=== PATIENT | male | born 1955 | race Caucasian/White ===

== ENCOUNTER 2022-08-13 12:46 | Observation (INO) ==
[2022-08-13 13:46] LABS: Basophils # (auto) 0.02 K/uL (0-0.2); Basophils % (auto) 0.2 %; Hematocrit (blood only) 46.4 % (42.0-52.0); Hemoglobin 15.7 g/dl (14.0-18.0); Immature Granulocytes # (auto) 0.04 K/uL (0.01-0.20); Immature Granulocytes % (auto) 0.4 %; Lymphocytes # (auto) 0.62 K/uL (1.2-3.4); Lymphocytes % (auto) 5.6 %; Mean Corpuscular Hemoglobin 30.8 pg (25.0-34.0); Mean Corpuscular Hgb Conc 33.8 g/dL (32.0-36.0); Mean Platelet Volume 9.8 fL (9.4-12.4); Monocytes # (auto) 0.81 K/uL (0.11-0.59); Monocytes % (auto) 7.3 %; Neutrophils # (auto) 9.59 K/uL (1.40-6.50); Neutrophils % (auto) 86.5 %; Platelet Count 243 K/uL (130-400); RDW Coefficient of Variation 12.6 % (11.5-14.5); White Blood Count 11.08 K/ul (4.8-10.8)
--- NOTE | 2022-08-13 14:03 | Emergency Department Note ---
ED Provider Note History of Present Illness Chief Complaint: Swelling/Edema to Extremity Stated Complaint: HAND SWELLING, POSSIBLE INFECTION - MD REFERRED Time Seen by Provider: 08/13/22 13:03 Source: patient Mode of arrival: ambulatory Limitations: no limitations Patient is a 67-year-old male who presents to the emergency department for evaluation of swelling and pain of his left thumb. Patient reports that 3 to 4 days ago, he got a piece of plastic stuck in the skin of his left thumb. He was able to remove this and believes that he got all of it out. He states that yesterday, he noticed some increased pain and swelling in the thumb. He is having trouble bending the thumb and making a fist. He denies any fevers/chills. Home Medications Medication Instructions Recorded Confirmed Type ibuprofen 200 mg tablet 200 - 400 mg PO DIRECTED PRN 08/13/22 08/13/22 History Pain Allergies Allergy/AdvReac Type Severity Reaction Status Date / Time No Known Allergies Allergy Unknown Verified 08/13/22 16:10 Past Med/Surg History Social History Smoking Status: Never smoker Preferred Language: Mosotho Feels Safe at Home: Yes Physical Exam Vital Signs Vital Signs - 24 hr 08/13/22 12:49 08/13/22 16:11 08/13/22 19:59 Temperature 36.5 C Temperature Source Temporal Artery Scan Pulse Rate 71 Pulse Rate [Apical] 72 75 Respiratory Rate 18 18 16 Respiratory Effort / Characteristics Non-Labored Spontaneous Non-Labored Respiratory Depth Normal Normal Respiratory Pattern Regular Blood Pressure 166/82 H Blood Pressure [Left Arm] 134/73 145/75 H Blood Pressure Mean 110 Blood Pressure Mean [Left Arm] 93 98 Blood Pressure Position Sitting Pulse Oximetry 99 96 98 Oxygen Delivery Method Room Air Room Air Room Air Sepsis Recent Fever Within 48 Hours No Sepsis New/Unexplained Change in Mental Status N/A Sepsis Action Taken by Nursing No Action Required VITALS: Vitals are noted on the nurse's note and reviewed by myself. GENERAL: This is a 67-year-old male, in no acute distress, well-developed well- nourished. SKIN: A small puncture wound to the finger pad of the left thumb. There is diffuse erythema and edema over the left thumb. MUSCULOSKELETAL: Patient is unable to fully flex the left thumb. There is some mild generalized tenderness to palpation over the flexor aspect of the left thumb. No red streaking up the arm. NEURO: Patient was alert and oriented to person place and time. Distal sensation intact. Course Course Splint placement: Splint: Ortho-Glass thumb spica Indication: Concern for tenosynovitis of the left thumb Ortho-Glass splint was applied by the ED blending technician under my supervision. Neurovascular status reassessed by myself status post splint placement and was intact. Administered Medications Discontinued Medications Ceftriaxone Sodium 1,000 mg/ (Dextrose) 50 mls @ 100 mls/hr IV NOW STA Stop: 08/13/22 15:50 Last Infusion: 08/13/22 16:42 Dose: 0 mls/hr Documented By: Admin: 08/13/22 16:06 Dose: 100 mls/hr Documented By: ANTOINETTE Vancomycin HCl 1,250 mg/ (Sodium Chloride) 525 mls @ 200 mls/hr IV NOW ONE Stop: 08/13/22 18:47 Last Admin: 08/13/22 16:52 Dose: 200 mls/hr Documented By: ANTOINETTE Ketorolac Tromethamine (Ketorolac Tromethamine 15 Mg/Ml Vial) 15 mg IV NOW STA Stop: 08/13/22 14:37 Last Admin: 08/13/22 14:47 Dose: 15 mg Documented By: ANTOINETTE Morphine Sulfate (Morphine Sulfate 2 Mg/Ml Carp) 2 mg IV NOW STA Stop: 08/13/22 16:11 Last Admin: 08/13/22 16:49 Dose: 2 mg Documented By: ANTOINETTE Morphine Sulfate (Morphine Sulfate 4 Mg/Ml 1 Ml Carp\Vial) 4 mg IV NOW STA Stop: 08/13/22 19:12 Last Admin: 08/13/22 19:14 Dose: 4 mg Documented By: ANTOINETTE Medical Decision Making Differential Diagnosis Differential diagnosis includes paronychia, felon, flexor tenosynovitis, cellulitis, abscess, among others. Home Medications was personally reviewed by me Laboratory Data Attestation: I reviewed the patient's lab results. 08/13/22 13:35 08/13/22 13:35 Lab Results 08/13/22 08/13/22 08/13/22 Range/Units 13:35 13:35 16:30 WBC 11.08 H (4.8-10.8) K/ul RBC 5.10 (4.70-6.10) M/uL Hgb 15.7 (14.0-18.0) g/dl Hct 46.4 (42.0-52.0) % MCV 91.0 (80.0-100.0) fL MCH 30.8 (25.0-34.0) pg MCHC 33.8 (32.0-36.0) g/dL RDW Std Deviation 42.0 (36.4-46.3) fL RDW Coeff of Good 12.6 (11.5-14.5) % Plt Count 243 (130-400) K/uL MPV 9.8 (9.4-12.4) fL Immature Gran % (Auto) 0.4 % Neut % (Auto) 86.5 % Lymph % (Auto) 5.6 % [place] % (Auto) 7.3 % Eos % (Auto) 0.0 % Baso % (Auto) 0.2 % Neut # (Auto) 9.59 H (1.40-6.50) K/uL Lymph # (Auto) 0.62 L (1.2-3.4) K/uL [place] # (Auto) 0.81 H (0.11-0.59) K/uL Eos # (Auto) 0.00 (0-0.50) K/uL Baso # (Auto) 0.02 (0-0.2) K/uL Immature Gran # (Auto) 0.04 (0.01-0.20) K/uL Sodium 138 (136-145) mmol/L Potassium 4.4 (3.5-5.1) mmol/L Chloride 102 (98-107) mmol/L Carbon Dioxide 29 (21-32) mmol/L Anion Gap 7 (3-11) BUN 23 (6-23) mg/dl Creatinine 0.76 (0.6-1.4) mg/dl Est Cr Clr Drug Dosing 82.4 ml/min Est GFR ( Amer) 110.2 ml/min Est GFR (Non-Af Amer) 95.1 ml/min BUN/Creatinine Ratio 30.3 H (10-20) Glucose 104 H (70-99(Fasting)) mg/dl Calcium 9.1 (8.6-10.3) mg/dl Total Bilirubin 1.0 (0.2-1.0) mg/dl AST 25 (13-39) U/L ALT 19 (7-52) U/L Alkaline Phosphatase 51 (34-104) U/L Total Protein 7.1 (6.0-8.3) gm/dl Albumin 4.2 (3.4-5.0) gm/dl Globulin 2.9 (2.5-4.0) gm/dl Albumin/Globulin Ratio 1.4 (0.9-2) SARS-CoV-2, RNA, NAAT NEGATIVE (NEGATIVE) Imaging Data Attestation: I personally reviewed and interpreted this imaging study as follows: Radiologist's Impression: Finger X-Ray 08/13/22 13:26 LEFT THUMB 3 VIEWS HISTORY: left thumb swelling, pain COMPARISON: None. FINDINGS: There is no fracture or dislocation. Diffuse soft tissue swelling within the left thumb. No soft tissue gas. No destructive changes to suggest an osteomyelitis. No radiopaque foreign bodies. IMPRESSION: Soft tissue swelling within the left thumb. No radiopaque foreign bodies. ACT 112: Negative or not required by law. Electronically signed by: Gaurav Peoples M.D. 08/13/2022 2:41 PM MDM Narrative This patient is a 67-year-old male who presents to the emergency department for evaluation of pain and swelling in his left thumb. Patient had a puncture wound to the area a few days ago and has had increasing swelling and pain over the past few days. On exam he has fusiform swelling of the finger with difficulty flexing the finger. He has some pain extending into the hand and up the forearm. Symptoms actually worsened while he was in the emergency department. I am concerned about the possibility of a flexor tenosynovitis. I consulted orthopedics who did evaluate the patient and recommended admission to medicine. Patient was given Rocephin and [facility]com[facility] was [facility] in an Ortho-Glass thumb spica splint at the recommendation of orthopedics. Impression Cellulitis of thumb, left Discharge Plan Visit Data Chief Complaint: Swelling/Edema to Extremity Stated Complaint: HAND SWELLING, POSSIBLE INFECTION - MD REFERRED ED Provider: [facility] ED Midlevel Provider: Radha Saldana Discharge Problem: Cellulitis of thumb, left Patient Disposition: Admitted As Inpatient Discharge Instructions Interventions: ED Discharge Assessment Last Done: 08/13/22 20:06 Forms Stand Alone Forms: My [facility] Prescriptions Prescriptions: No Action ibuprofen 200 mg Tablet 200 - 400 mg PO DIRECTED PRN (Reason: Pain) Referrals Referrals: Omaira Bartlett [Primary Care Provider] -
[2022-08-13 14:05] LABS: Albumin Globulin Ratio 1.4 (0.9-2); Albumin Level 4.2 gm/dl (3.4-5.0); BUN Creatinine Ratio 30.3 (10-20); Calcium 9.1 mg/dl (8.6-10.3); Creatinine Clr Calc Pharmacy 82.4 ml/min; Est GFR (African American) 110.2 ml/min; Est GFR (Non-African American) 95.1 ml/min; Globulin 2.9 gm/dl (2.5-4.0); Potassium 4.4 mmol/L (3.5-5.1); Total Protein 7.1 gm/dl (6.0-8.3)
[2022-08-13] MEDS ORDERED: KETOROLAC TROMETHAMINE 15 MG/ML VIAL IV STA (14:36)
--- NOTE | 2022-08-13 14:42 | XRay Report ---
LEFT THUMB 3 VIEWS HISTORY: left thumb swelling, pain COMPARISON: None. FINDINGS: There is no fracture or dislocation. Diffuse soft tissue swelling within the left thumb. No soft tissue gas. No destructive changes to suggest an osteomyelitis. No radiopaque foreign bodies. IMPRESSION: Soft tissue swelling within the left thumb. No radiopaque foreign bodies. ACT 112: Negative or not required by law. Electronically signed by: Gaurav Peoples M.D. 08/13/2022 2:41 PM
[2022-08-13] MEDS ORDERED: cefTRIAXone SODIUM 1,000 MG in DEXTROSE 5% AD-VAN 50 ML IV STA (15:21)
[2022-08-13] MEDS ORDERED: VANCOMYCIN CONSULT ACTIVE PRN (16:10)
[2022-08-13] MEDS ORDERED: MoRPHine SULFATE 2 MG/ML CARP IV STA (16:10)
[2022-08-13] MEDS ORDERED: VANCOMYCIN HCL 1,250 MG in SODIUM CHLORIDE 0.9% 500 ML IV ONE (16:10)
--- NOTE | 2022-08-13 18:24 | History & Physical Report ---
Date of Service August 13, 2022 Assessment & Plan (1) Cellulitis of thumb, left: Plan: Vancomycin + ceftriaxone due to concern for flexor tenosynovitis. Follow up blood cultures Consult orthopedics Plan VTE Prophylaxis - low risk Diet - regular, NPO after midnight Disposition - admit to med/surg Admission and Anticipated Discharge Date Admission Date: August 13, 2022 History of Present Illness Chief Complaint: Left thumb swelling, pain, erythema Primary Care Provider: Omaira Bartlett Eric Jones is a 67 year old male who presents to the ER with left thumb swelling, pain and redness. Initial injury after pice of plastic stuck in his left thumb 3 days ago. The following day he thought something was stuck in it still and tried to dig it out with a needle. Yesterday and much worse today s welling erythema and numbness which is already starting to improve with antibiotics and pain medications given in the ER. He feels the swelling down to his mid forearm. Associated fever and chills. Patient is otherwise healthy. Can run a mile without any issues. No prior history of heart attacks or strokes. On no routine prescription medications. Allergies Allergy/AdvReac Type Severity Reaction Status Date / Time No Known Allergies Allergy Unknown Verified 08/13/22 16:10 Home Medications Medication Instructions Recorded Confirmed Type ibuprofen 200 mg tablet 200 - 400 mg PO DIRECTED PRN 08/13/22 08/13/22 History Pain Past Med/Surg History Social History Smoking Status: Never smoker Hx Alcohol Use: Yes Alcohol type: wine and hard liquor Hx Substance Use: No Preferred Language: Sinhala Life Assurance Representative Required: No Beliefs That Will Affect Care: None Current Living Situation: Spouse Feels Safe at Home: Yes Safety Concerns: Feels Safe At This Time Assistive Devices: None Review of Systems Review of Systems: All systems reviewed & are unremarkable except as noted in HPI & below Physical Exam Constitutional: WD/WN, vitals as above Respiratory: normal respiratory effort, lungs clear to auscultation Cardiovascular: RRR, no murmur, no edema Gastrointestinal (Abdomen): normal bowel sounds, soft, nontender, no hepatosplenomegaly Skin: erythema and swelling from left thumb to wrist. swelling extends with associated pain on palpation to mid forearm. pain on flexion of his thumb - limited by swelling. Results & Data Results & Data Vital Signs (Past 12 Hours) Vital Signs Temp Pulse Pulse Resp BP BP Pulse Ox 08/13/22 16:11 72 18 134/73 96 08/13/22 12:49 36.5 C 71 18 166/82 H 99 O2 Del Method 08/13/22 16:11 Room Air 08/13/22 12:49 Room Air Laboratory Results Abnormal lab results 08/13/22 08/13/22 Range/Units 13:35 13:35 WBC 11.08 H (4.8-10.8) K/ul Neut # (Auto) 9.59 H (1.40-6.50) K/uL Lymph # (Auto) 0.62 L (1.2-3.4) K/uL [place] # (Auto) 0.81 H (0.11-0.59) K/uL BUN/Creatinine Ratio 30.3 H (10-20) Glucose 104 H (70-99(Fasting)) mg/dl C-Reactive Protein 2.59 H (0-0.5) mg/dl Diagnostic Findings LEFT THUMB 3 VIEWS HISTORY: left thumb swelling, pain COMPARISON: None. FINDINGS: There is no fracture or dislocation. Diffuse soft tissue swelling within the left thumb. No soft tissue gas. No destructive changes to suggest an osteomyelitis. No radiopaque foreign bodies. IMPRESSION: Soft tissue swelling within the left thumb. No radiopaque foreign bodies. Medications Administered ER Medications Given: Toradol 15mg IV Ceftriaxone 1000mg IV Morphine 2mg IV Vancomycin 1250mg IV Morphine 4mg IV Code Status & VTE Plan Code Status Full VTE Prophylaxis Plan VTE Prophylaxis will be ordered: No PG Care Time/CCT Total # of Minutes Spent Total Time Spent with Patient: Total time spent is greater than 50% in coordination of care (as documented) at patient's floor/unit and/or counseling patient: Coding Level of Care Code 32255 INT INP/OBS CARE 2/55MIN Diagnoses Cellulitis of thumb, left L03.012
--- NOTE | 2022-08-13 18:24 | Orthopedic Consultation ---
Date of Service August 13, 2022 Assessment & Plan (1) Cellulitis of thumb, left: 67-year-old otherwise healthy male with likely hand cellulitis. On exam, the penetrating injury location is reassuring and he does not have [place] cardinal signs that would be concerning for flexor tenosynovitis. If there is any i nvolvement of the flexor sheath, it is early. This should be treated nonsurgically with strict elevation and parenteral antibiotics until clinical improvement. -Thumb spica splint to be applied by the ED techs. -Strict elevation will be ordered -Monitor WBC, ESR, CRP tomorrow morning -Antibiotic selection per the medical team to cover for cellulitis from clean penetrating injury -Once clinical improvement, should be transitioned to oral antibiotics after 24 hours -Keep n.p.o. after midnight and I will examine again to be sure of improvement -Please [place] text me directly with any questions History of Present Illness Reason for Consultation: Left thumb swelling and pain, penetrating injury Requesting Physician: . 67-year-old male who is reasonably healthy reports that he was opening a medicine bottle when a splinter of plastic entered the tip of his thumb on Monday. He got most of it out, he thought. He felt more a day later and dug it out with a needle. Yesterday he began feeling more pain in the thumb and across the hand. He notices thumb with swelling. He presented to the ER today. At the ER he thought that the process was radiating up his arm. He had a dose of IV antibiotics in the ER, and he felt significant improvement already. Orthopedics consulted for potential penetrating injury to the flexor tenosynovium. Patient denies any fevers nor chills right now. Appetite intact. Denies malaise. Allergies Allergy/AdvReac Type Severity Reaction Status Date / Time No Known Allergies Allergy Unknown Verified 08/13/22 16:10 Home Medications Medication Instructions Recorded Confirmed Type ibuprofen 200 mg tablet 200 - 400 mg PO DIRECTED PRN 08/13/22 08/13/22 History Pain Past Med/Surg History Social History Smoking Status: Never smoker Preferred Language: Gibraltarian Feels Safe at Home: Yes Review of Systems All systems reviewed & are unremarkable except as noted in HPI & below. Physical Exam Left hand: He has some mild erythema to the thumb and there is diffuse swelling, not fusiform. Some mild swelling through the base of the hand. No erythema to the hand. He can actively range the IP joint of the thumb. He is minimally tender over the entrance wound which is punctate and in the pulp of the thumb pad, away from the flexor insertion at the base of the distal phalanx. He has no pain on passive stretch of the flexor tendon. Deep palpation of thumb flexor tendon sheath course is without significant tenderness. Passive stretch of the wrist causes some very mild discomfort. Constitutional WD/WN, vitals as above Respiratory normal respiratory effort; no respiratory distress Cardiovascular Extremities: normal capillary refill; no edema Chest (Breasts) Chest: normal inspection of chest Skin no rashes, warm and dry Psychiatric A+Ox3, euthymic affect Results & Data Results & Data Laboratory Results WBC greater than 11 Diagnostic Findings Radiographs of the left thumb no evidence of foreign body in the area of concern. Diffuse soft tissue swelling is evident. PG Care Time/CCT Total # of Minutes Spent Total Time Spent with Patient: Total time spent is greater than 50% in coordination of care (as documented) at patient's floor/unit and/or counseling patient: Coding Level of Care Code 54086 OFFICE CONSULT LVL M Diagnoses Cellulitis of thumb, left L03.012
[2022-08-13] MEDS ORDERED: MoRPHine SULFATE 4 MG/ML 1 ML CARP\\VIAL IV STA (19:11)
--- NOTE | 2022-08-13 20:57 | Pharmacy Report ---
Pharmacy Vanc AUC Short Note - Date of Service August 13, 2022 - Assessment & Plan Assessment 67 year old M receiving vancomycin/rocephin for treatment of cellulitis/ possible tenosynovitis. Pertinent microbiologic data includes: n/a Day # 1 of antimicrobial therapy. Plan Vancomycin * AUC/KELLY is the preferred PK/PD target for vancomycin * AUC guided dosing is effective and associated with decreased risk of nephrotoxicity compared to traditional trough targets * vancomycin 1000 mg IV predicted to achieve target AUC/KELLY of 400-600 mg/L.hr and may be associated with a 15 % risk of nephrotoxicity * Trough to be ordered if continued > 48 hours Pharmacy will continue to follow and will adjust dose/frequency as necessary. Thank you.
[2022-08-13 21:18] LABS: C Reactive Protein 2.59 mg/dl (0-0.5)
[2022-08-13] MEDS: ACETAMINOPHEN 500 MG TAB PO SCH (21:26)
[2022-08-13] MEDS: KETOROLAC TROMETHAMINE 15 MG/ML VIAL IV PRN (23:53)
[2022-08-14] MEDS: VANCOMYCIN HCL 1,000 MG in SODIUM CHLORIDE 0.9% 250 ML IV SCH ×2 (04:40→17:49)
[2022-08-14 06:36] LABS: Basophils # (auto) 0.02 K/uL (0-0.2); Basophils % (auto) 0.1 %; Eosinophils # (auto) 0.01 K/uL (0-0.50); Eosinophils % (auto) 0.1 %; Hematocrit (blood only) 38.8 % (42.0-52.0); Hemoglobin 13.5 g/dl (14.0-18.0); Immature Granulocytes # (auto) 0.06 K/uL (0.01-0.20); Immature Granulocytes % (auto) 0.4 %; Lymphocytes # (auto) 0.74 K/uL (1.2-3.4); Mean Corpuscular Hemoglobin 30.9 pg (25.0-34.0); Mean Corpuscular Hgb Conc 34.8 g/dL (32.0-36.0); Mean Corpuscular Volume 88.8 fL (80.0-100.0); Mean Platelet Volume 10.5 fL (9.4-12.4); Monocytes # (auto) 0.98 K/uL (0.11-0.59); Monocytes % (auto) 6.6 %; Neutrophils # (auto) 13.08 K/uL (1.40-6.50); Neutrophils % (auto) 87.8 %; Platelet Count 215 K/uL (130-400); RDW Coefficient of Variation 12.8 % (11.5-14.5); Red Blood Count 4.37 M/uL (4.70-6.10); White Blood Count 14.89 K/ul (4.8-10.8)
[2022-08-14] MEDS: KETOROLAC TROMETHAMINE 15 MG/ML VIAL IV PRN ×2 (07:20→17:52)
[2022-08-14] MEDS: ACETAMINOPHEN 500 MG TAB PO SCH ×3 (09:13→20:45)
--- NOTE | 2022-08-14 09:37 | Orthopedic Progress Note ---
Date of Service August 14, 2022 Assessment & Plan (1) Cellulitis of thumb, left: Remains without signs of tenosynovitis with painfree passive extension. Remains with diffuse mild erythema and edema only slightly better. Pain is 50% better. Labs equivocal. No indications for surgical decompression today. No localized areas of abscess suspicion. Expect continued improvement. Cancelled NPO. Will continue to monitor. Expect another 24h of improvement on parenteral IV abx tx and possible discharge w orals tomorrow. Subjective Pain 50% better. Splint felt tight and maybe unhelpful. Appetite intact. No malaise. No subjective fever but measured last night. Review of Systems All systems reviewed & are unremarkable except as noted in HPI & below. Physical Exam . Results & Data Results & Data Laboratory Results Laboratory Tests 08/14/22 08/14/22 08/14/22 05:24 05:24 05:24 WBC 14.89 H ESR 9 C-Reactive Protein 9.22 H Diagnostic Findings . PG Care Time/CCT Total # of Minutes Spent Total Time Spent with Patient: Total time spent is greater than 50% in coordination of care (as documented) at patient's floor/unit and/or counseling patient: Coding Level of Care Code 03997 SUB INP/OBS CARE 3/50MIN Diagnoses Cellulitis of thumb, left L03.012
--- NOTE | 2022-08-14 13:50 | Hospitalist Progress Note ---
Date of Service August 14, 2022 Assessment & Plan (1) Cellulitis of thumb, left: Plan: Vancomycin + ceftriaxone due to concern for flexor tenosynovitis. Ortho following - stated patiet is without signs of tenosynovitis and no indication for decompression today CBC reviewed today WBC, elevated CRP Repeat AM labs Ordered blood cultures today for completeness Plan VTE Prophylaxis - low risk encourage up and OOB Diet - regular Disposition - admit to med/surg Admission and Anticipated Discharge Date Admission Date: August 13, 2022 Subjective Patient was seen today while rounding. He is sitting up at bedside and states his pain in his left hand is improving, but still swollen. Review of Systems Constitutional: + chills; no fever, no sweats and no body aches Respiratory: no cough, no chest congestion and no dyspnea Cardiovascular: no chest pain Gastrointestinal: no abdominal pain, no nausea and no vomiting Integumentary: + erythema; no rash erythema and warmth left thumb Physical Exam Constitutional: WD/WN, vitals as above Neck: trachea midline, no thyromegaly Respiratory: normal respiratory effort, lungs clear to auscultation Cardiovascular: RRR, no murmur, no edema Gastrointestinal (Abdomen): normal bowel sounds, soft, nontender, no hepatosplenomegaly Skin: erythema and swelling left thumb into left thenar eminence, swelling extends into other 4 fingers and to distal wrist. No erythema to wrist or forearm. Radial and ulnar pulses + 2 symmetric. Pain on flexion of his thumb - limited by swelling, limited ROM fingers as well due to swelling. pinpoint area dorsum of left thumb where plastic had been, no discharge or purulent debri noted, intact sensation and good capillary refill Psychiatric: A+Ox3, euthymic affect Results & Data Results & Data Vital Signs (Past 12 Hours) Vital Signs Temp Pulse Resp BP Pulse Ox O2 Del Method 08/14/22 07:21 36.7 C 68 16 121/68 97 Room Air Laboratory Results Abnormal lab results 08/13/22 08/14/22 08/14/22 Range/Units 13:35 05:24 05:24 WBC 14.89 H (4.8-10.8) K/ul RBC 4.37 L (4.70-6.10) M/uL Hgb 13.5 L (14.0-18.0) g/dl Hct 38.8 L (42.0-52.0) % Neut # (Auto) 13.08 H (1.40-6.50) K/uL Lymph # (Auto) 0.74 L (1.2-3.4) K/uL [place] # (Auto) 0.98 H (0.11-0.59) K/uL BUN/Creatinine Ratio 30.3 H (10-20) Glucose 104 H (70-99(Fasting)) mg/dl C-Reactive Protein 2.59 H 9.22 H (0-0.5) mg/dl Diagnostic Findings Finger X-Ray 08/13/22 13:26 LEFT THUMB 3 VIEWS HISTORY: left thumb swelling, pain COMPARISON: None. FINDINGS: There is no fracture or dislocation. Diffuse soft tissue swelling within the left thumb. No soft tissue gas. No destructive changes to suggest an osteomyelitis. No radiopaque foreign bodies. IMPRESSION: Soft tissue swelling within the left thumb. No radiopaque foreign bodies. ACT 112: Negative or not required by law. Electronically signed by: Gaurav Peoples M.D. 08/13/2022 2:41 PM PG Care Time/CCT Total # of Minutes Spent Total Time Spent with Patient: Total time spent is greater than 50% in coordination of care (as documented) at patient's floor/unit and/or counseling patient: Coding Level of Care Code 12250 SUB INP/OBS CARE 25MIN Diagnoses Cellulitis of thumb, left L03.012
[2022-08-14] MEDS: cefTRIAXone SODIUM 2,000 MG in DEXTROSE 5% 50 ML IV SCH (16:59)
[2022-08-15] MEDS ORDERED: VANCOMYCIN LEVEL ONE (04:30)
[2022-08-15 04:44] LABS: Hematocrit (blood only) 39.4 % (42.0-52.0); Hemoglobin 13.8 g/dl (14.0-18.0); Mean Corpuscular Hemoglobin 31.4 pg (25.0-34.0); Mean Corpuscular Volume 89.7 fL (80.0-100.0); Platelet Count 203 K/uL (130-400); RDW Coefficient of Variation 12.8 % (11.5-14.5); RDW Standard Deviation 42.2 fL (36.4-46.3); Red Blood Count 4.39 M/uL (4.70-6.10); White Blood Count 13.27 K/ul (4.8-10.8)
[2022-08-15] MEDS: VANCOMYCIN HCL 1,000 MG in SODIUM CHLORIDE 0.9% 250 ML IV SCH ×2 (04:56→16:38)
[2022-08-15 05:03] LABS: Albumin Globulin Ratio 1.1 (0.9-2); Albumin Level 3.3 gm/dl (3.4-5.0); BUN Creatinine Ratio 25.3 (10-20); Bilirubin,Total 0.4 mg/dl (0.2-1.0); C Reactive Protein 11.13 mg/dl (0-0.5); Calcium 8.2 mg/dl (8.6-10.3); Creatinine Clr Calc Pharmacy 68.6 ml/min; Est GFR (African American) 101.4 ml/min; Est GFR (Non-African American) 87.5 ml/min; Potassium 3.9 mmol/L (3.5-5.1); Total Protein 6.3 gm/dl (6.0-8.3)
[2022-08-15] MEDS: KETOROLAC TROMETHAMINE 15 MG/ML VIAL IV PRN (06:21)
--- NOTE | 2022-08-15 08:39 | Orthopedic Progress Note ---
Date of Service August 15, 2022 Assessment & Plan (1) Cellulitis of thumb, left: Remains without signs of tenosynovitis with painfree passive extension and flexion. Hand pain and edema is diffuse. Pain is much improved with antibiotics. Remains with diffuse mild erythema and edema, only slightly better. WBC downtrend No indications for surgical decompression today. No localized areas of abscess or tenosynovitis suspicion. Unclear of why has not made much progress with regard to edema. MRI would likely provide more clarity and certainty with regard to abscess formation or tenosynovitis involvement. No targets for surgery to improve his clinical progress, at the moment. We will continue to monitor to follow-up with MRI results Expect another 24h of improvement on parenteral IV abx tx and possible discharge w orals. Subjective Reports pain continues to be minimal since antibiotic initiation. He does not think the swelling is much improved. Denies any other malaise. Says he has been elevating pretty consistently. Review of Systems All systems reviewed & are unremarkable except as noted in HPI & below. Physical Exam Walking in the room with hand-held elevated on his chest. LUE: Exam similar to yesterday though I think there is less edema through the dorsum of the hand. Minimal discomfort with passive and active extension of the digits. He has tightness in terminal flexion and unable to make a composite fist. No focal areas of tenderness or suspicion of abscess formation on palpation throughout the hand and digits. The thumb remains almost completely nontender particular along the flexor tendon sheath. No streaking or erythema above the wrist. There are some mild volar edema proximal to the wrist crease. Overall edema has not improved noticeably. The thumb wounds are clean and dry and nontender Constitutional WD/WN, vitals as above no acute distress and not intoxicated appearing Respiratory normal respiratory effort; no labored breathing Cardiovascular Extremities: normal capillary refill Results & Data Results & Data Laboratory Results Laboratory Tests 08/15/22 08/15/22 04:29 04:29 WBC 13.27 H C-Reactive Protein 11.13 H Diagnostic Findings . PG Care Time/CCT Total # of Minutes Spent Total Time Spent with Patient: Total time spent is greater than 50% in coordination of care (as documented) at patient's floor/unit and/or counseling patient: Coding Level of Care Code 70063 SUB INP/OBS CARE 3/50MIN Diagnoses Cellulitis of thumb, left L03.012
[2022-08-15] MEDS: ACETAMINOPHEN 500 MG TAB PO SCH ×3 (09:01→20:14)
--- NOTE | 2022-08-15 15:25 | Pharmacy Report ---
Pharmacy PK ABX Note - Date of Service August 15, 2022 - Assessment and Plan Assessment 67 year old M receiving vancomycin/rocephin for treatment of cellulitis/ possible tenosynovitis. Per ortho note yesterday, no signs of tenosynovitis and possible transition to PO abx today. Pertinent microbiologic data includes:bcx NGTD Day # 2 of antimicrobial therapy. Plan Vancomycin * Level today was 7.8 mcg/mL, which is subtherapeutic. However level was drawn prior to the 4th dose and prior to stead state. Regimen predicts AUC should reach goal range with the fourth dose. Given tenosynovitis rule out and clinical improvement, will continue current regimen and recheck level in AM. If level remains subtherapeutic at that time and therapy is to continue will consider increase in dosing regimen. * Continue Maintenance dose: 1000 mg IV every 12 hours * Regimen is predicted to achieve target AUC/KELLY of 400-600 mg/L.hr (Predicted AUCss 511 mg/L.hr) * Random level ordered for: 08/16/22 Pharmacy will continue to follow and will adjust dose/frequency as necessary. Thank you. Pharmacy has transitioned to AUC monitoring for vancomycin. AUC/KELLY is the preferred PK/PD target and is associated with decreased risk of nephrotoxicity compared to traditional trough targets.
[2022-08-15] MEDS: cefTRIAXone SODIUM 2,000 MG in DEXTROSE 5% 50 ML IV SCH (15:26)
--- NOTE | 2022-08-15 15:52 | Hospitalist Progress Note ---
Date of Service August 15, 2022 Assessment & Plan (1) Cellulitis of thumb, left: Plan: Acute/unstable - moderate risk - Continue vancomycin + ceftriaxone due to concern for flexor tenosynovitis. - Ortho consulted, appreciate assistance, feels he is w/o signs of tenosynovitis and no indication for decompression - CRP has been uptrending since admit, 2.59 - 9.22 - 11.13 respectively - Given lack of great improvement, d/w ortho, recommending MRI which has been ordered - Unfortunately, MRI not available d/t , will have to wait until tomorrow - Hold d/c until after MRI (2) Leukocytosis: Plan: Acute/unstable - moderate risk - w/o signs or symptoms of sepsis syndrome - Ordered blood cultures but this was done after initiation of IV abx so data likely skewed, NGTD - CBC reviewed today WBC, downtrended from 14.89 to 13.27 - Continue to trend with repeat CBC in AM Plan Repeat labs in AM. Make full admission. MRI tomorrow, dispo will be determined following this study. Plan of care d/w Dr. Hernandez. Admission and Anticipated Discharge Date Admission Date: August 13, 2022 Subjective Patient seen on daily rounds this morning. He feels that the redness in his left hand has improved but swelling is not drastically changed. He does not endorse uncontrolled pain. No fever/chills. Physical Exam Physical Exam: GENERAL: 67 yo well-developed, well-nourished M. AAOx4. NAD. LUNGS: Clear to auscultation bilaterally w/o W/R/R. CARDIOVASCULAR: Regular rate and rhythm. EXTREMITIES: L hand with obvious swelling, more pronounced in the thumb with warmth, no lymphangitic streaking appreciated Results & Data Results & Data Vital Signs (Past 12 Hours) Vital Signs Temp Pulse Resp BP Pulse Ox O2 Del Method 08/15/22 14:15 36.4 C L 54 L 16 146/73 H 100 Room Air 08/15/22 07:18 37 C 61 18 121/74 97 Room Air Laboratory Results 08/15/22 04:29 08/15/22 04:29 PG Care Time/CCT Total # of Minutes Spent Total Time Spent with Patient: Total time spent is greater than 50% in coordination of care (as documented) at patient's floor/unit and/or counseling patient: Coding Level of Care Code 36666 SUB INP/OBS CARE MIN Diagnoses Cellulitis of thumb, left L03.012 Leukocytosis D72.829
[2022-08-15 19:11] LABS: A calco-baum cmplx NotReported Not Detected (NotDetected); Bact fragilis Not Reported Not Detected (NotDetected); C auris Not Reported Not Detected (NotDetected); Calbicans Not Reported Not Detected (NotDetected); Candida glabrata Not Reported Not Detected (NotDetected); Candida krusei Not Reported Not Detected (NotDetected); Cneoformans/gatti Not Reported Not Detected (NotDetected); Cparapsilosis Not Reported Not Detected (NotDetected); Ctropicalis Not Reported Not Detected (NotDetected); E cloacae compx Not Reported Not Detected (NotDetected); Efaecalis Not Reported Not Detected (NotDetected); Efaecium Not Reported Not Detected (NotDetected); Enterobacterales Not Reported Not Detected (NotDetected); Escherichia coli Not Reported Not Detected (NotDetected); H influenzae Not Reported Not Detected (NotDetected); K aerogenes Not Reported Not Detected (NotDetected); Koxytoca Not Reported Not Detected (NotDetected); Kpneumoniae grp Not Reported Not Detected (NotDetected); Lmonocyt Not Reported Not Detected (NotDetected); N meningitidis Not Reported Not Detected (NotDetected); P aeruginosa Not Reported Not Detected (NotDetected); Proteus spp Not Reported Not Detected (NotDetected); Salmonella spp Not Reported Not Detected (NotDetected); Smarcescens Not Reported Not Detected (NotDetected); Staph lugdunensis Not Reported Not Detected (NotDetected); Staph spp. Not Reported DETECTED (NotDetected); Staphaureus Not Reported Not Detected (NotDetected); Staphepi Not Reported DETECTED (NotDetected); Staphylococcus spp. DETECTED (NotDetected); Stenmaltophilia Not Reported Not Detected (NotDetected); Strep agal(GrpB) Not Reported Not Detected (NotDetected); Strep pneum Not Reported Not Detected (NotDetected); Strep pyog (GrpA) Not Reported Not Detected (NotDetected); Strep spp Not Reported Not Detected (NotDetected); mecAC Resistant Gene Not Detected (NotDetected)
[2022-08-15 19:23] LABS: Staphylococcus epidermidis DETECTED (NotDetected)
[2022-08-16] MEDS: VANCOMYCIN HCL 750 MG in SODIUM CHLORIDE 0.9% 250 ML IV SCH ×2 (02:16→09:28)
[2022-08-16] MEDS: KETOROLAC TROMETHAMINE 15 MG/ML VIAL IV PRN (02:18)
[2022-08-16] MEDS ORDERED: VANCOMYCIN HCL 750 MG in SODIUM CHLORIDE 0.9% 250 ML IV SCH (03:00)
[2022-08-16] MEDS: ACETAMINOPHEN 500 MG TAB PO SCH (08:20)
[2022-08-16 09:35] LABS: Basophils # (auto) 0.03 K/uL (0-0.2); Basophils % (auto) 0.3 %; Eosinophils # (auto) 0.09 K/uL (0-0.50); Hematocrit (blood only) 41.9 % (42.0-52.0); Hemoglobin 14.3 g/dl (14.0-18.0); Immature Granulocytes # (auto) 0.02 K/uL (0.01-0.20); Immature Granulocytes % (auto) 0.2 %; Lymphocytes # (auto) 0.93 K/uL (1.2-3.4); Lymphocytes % (auto) 10.4 %; Mean Corpuscular Hgb Conc 34.1 g/dL (32.0-36.0); Mean Corpuscular Volume 90.7 fL (80.0-100.0); Mean Platelet Volume 9.7 fL (9.4-12.4); Monocytes # (auto) 0.73 K/uL (0.11-0.59); Monocytes % (auto) 8.1 %; Neutrophils # (auto) 7.16 K/uL (1.40-6.50); Platelet Count 245 K/uL (130-400); RDW Coefficient of Variation 12.8 % (11.5-14.5); RDW Standard Deviation 42.3 fL (36.4-46.3); Red Blood Count 4.62 M/uL (4.70-6.10); White Blood Count 8.96 K/ul (4.8-10.8)
[2022-08-16 09:53] LABS: BUN Creatinine Ratio 25.9 (10-20); C Reactive Protein 6.67 mg/dl (0-0.5); Calcium 8.8 mg/dl (8.6-10.3); Est GFR (African American) 107.3 ml/min; Est GFR (Non-African American) 92.6 ml/min; Potassium 3.4 mmol/L (3.5-5.1)
--- NOTE | 2022-08-16 11:36 | Pharmacy Report ---
Pharmacy PK ABX Note - Date of Service August 16, 2022 - Assessment and Plan Assessment 67 year old M receiving vancomycin/rocephin for treatment of cellulitis/ possible tenosynovitis. Per ortho note yesterday, no signs of tenosynovitis. MRI ordered. Pertinent microbiologic data includes:bcx NGTD Day # 3 of antimicrobial therapy. Plan Vancomycin * Level today was 10.1 mcg/mL (~7h, after a single dose of new regimen). Predicted to achieve an AUCss of 437mg/L.hr which is therapeutic. * Continue Maintenance dose: 750 mg IV every 8 hours * Will obtain a repeat level for tomorrow given will be at steady state. Pharmacy will continue to follow and will adjust dose/frequency as necessary. Thank you. Pharmacy has transitioned to AUC monitoring for vancomycin. AUC/KELLY is the preferred PK/PD target and is associated with decreased risk of nephrotoxicity compared to traditional trough targets.
--- NOTE | 2022-08-16 13:13 | Orthopedic Progress Note ---
Date of Service August 16, 2022 Assessment & Plan (1) Cellulitis of thumb, left: Continues to improve clinically albeit slowly. Motion is much improved. His pain is nearly resolved. Swelling is significantly decreased. CRP is encouraging. Continues to be without any indication for surgical decompression. No localized areas of abscess or tenosynovitis suspicion. 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 Agree with trial of p.o. antibiotics and outpatient follow-up. Disposition: Should follow-up in clinic within 1 or 2 weeks. If he develops fevers or worsening symptoms then he should contact [facility] Orthopedics Subjective Reports that he continues to do better with regard to discomfort and swelling. No issues with his antibiotic regimen. Good appetite. No malaise. Review of Systems All systems reviewed & are unremarkable except as noted in HPI & below. Physical Exam Left upper extremity: His hand remains with mild edema but noticeably improved from the previous 48 hours. MP and IP motion intact but effortful. His thumb appears very well decompressed. He remains completely nontender along the flexor tendon sheath. The punctate wound is healed over. Mild passive extension pain at the wrist but not at the digits or annular pulleys. No tenosynovitis signs again today. Remains a very mild diffuse swelling in the palmar side of the hand which is improved. Constitutional WD/WN, vitals as above no acute distress and not intoxicated appearing Respiratory normal respiratory effort; no labored breathing Cardiovascular Extremities: normal capillary refill Results & Data Results & Data Laboratory Results Laboratory Tests 08/13/22 08/14/22 08/15/22 13:35 05:24 04:29 WBC C-Reactive Protein 2.59 H 9.22 H 11.13 H 08/16/22 08/16/22 09:22 09:22 WBC 8.96 C-Reactive Protein 6.67 H Diagnostic Findings MRI not performed at least of yet. PG Care Time/CCT Total # of Minutes Spent Total Time Spent with Patient: Total time spent is greater than 50% in coordination of care (as documented) at patient's floor/unit and/or counseling patient: Coding Level of Care Code 48763 SUB INP/OBS CARE 3/50MIN Diagnoses Cellulitis of thumb, left L03.012
--- NOTE | 2022-08-16 16:57 | Discharge Summary ---
Date of Service August 16, 2022 Admission HPI Per Admitting Provider Eric Jones is a 67 year old male who presents to the ER with left thumb swelling, pain and redness. Initial injury after pice of plastic stuck in his left thumb 3 days ago. The following day he thought something was stuck in it still and tried to dig it out with a needle. Yesterday and much worse today swelling erythema and numbness which is already starting to improve with antibiotics and pain medications given in the ER. He feels the swelling down to his mid forearm. Associated fever and chills. Patient is otherwise healthy. Can run a mile without any issues. No prior history of heart attacks or strokes. On no routine prescription medications. Principal Diagnosis Left thenar eminence cellulitis improved Discharge Exam Heart resolution overnight almost similar symmetrical appearance of the right Patient refused MRI scan prior to going home Discharge Data Allergies Allergy/AdvReac Type Severity Reaction Status Date / Time No Known Allergies Allergy Unknown Verified 08/13/22 16:10 Consultations 08/13/22 18:23 Consult Orthopedic Surgery Stat Hospital Course (1) Cellulitis of thumb, left: Acute/unstable - moderate risk - Continue vancomycin + ceftriaxone due to concern for flexor tenosynovitis. - Ortho consulted, appreciate assistance, feels he is w/o signs of tenosynovitis and no indication for decompression -Patient agreed improvement overnight did not want to go through another MRI scan clinical examination shows great improvement patient be discharged on Augmentin therapy with recommended close term outpatient follow-up (2) Leukocytosis: Total Time Total Time Spent Total Time Spent (In Minutes): It required greater than 30 minutes to prepare this patient for discharge Discharge Plan Discharge Items Patient Disposition: Home - Self-Care Reason For Visit: HAND CELLULITIS Discharge Diagnosis: left hand cellulitis Activity: Per Instructions section Activity Comment: avoid excessive use of hand for the next few days Non-emergency contact: Primary Care Provider Call non-emergency contact if: your symptoms worsen Follow-up/Referrals: Jesus Cosme MD [Surgeon] - Omaira Bartlett [Primary Care Provider] - 08/19/22 2:05 pm Diet: Regular Addtl Attending Provider Instructions: Orthopedic data warehouse consultant instructions: Complete the antibiotics prescribed by your primary medical team while you are in the hospital. Slowly stretch the fingers and wrist as tolerated. Resume normal activities when tolerable. Contact our clinic upon discharge for follow-up in 1 to 2 weeks. Pending Studies at Discharge: No Stand-Alone Forms: My [facility] Evince, Smoking Cessation Medications and DC Order Prescriptions: New amoxicillin-pot clavulanate 875-125 mg tablet 1 tab PO BID Qty: 14 0RF Continued ibuprofen 200 mg Tablet 200 - 400 mg PO DIRECTED PRN (Reason: Pain) Discharge Orders: Discharge Order (Routine); Ordered 08/16/22 Ordered By: Morro Flowers/Other Patient Handouts: Amoxicillin Oral ... Admission Data Admit Date/Time: 08/15/22 15:43 Attending Provider: Morro Hernandez Admit Provider: Morro Hernandez Primary Care Provider: Omaira Bartlett Other Providers: Jesus Cosme Other Interventions: Discharge Summary Assessment (RN) Last Done: 08/16/22 11:59 Coding Level of Care Code 03469 INP/OBS DISCH >30 MIN Diagnoses Cellulitis of thumb, left L03.012 Leukocytosis D72.829
[2022-08-17] MEDS ORDERED: VANCOMYCIN LEVEL ONE (09:00)
== END 2022-08-16 13:36 | disposition home or self-care (01) | DRG 603 ==
LOC: 3E 12:46 → ED 12:46 → SUATTDRO 18:22 → 3E 20:06

== ENCOUNTER 2023-07-18 16:56 | Inpatient (IN) ==
[2023-07-18] MEDS: SODIUM CHLORIDE 0.9% 1,000 ML IV ONE (17:28)
[2023-07-18] MEDS: PIPERACILLIN/TAZOBACTAM 4.5 GM/120 ML BAG IV ONE (17:28)
--- NOTE | 2023-07-18 18:09 | Emergency Department Note ---
Impression & Plan Lower abdominal pain, Diverticulitis, Abscess ED Provider Note NAME: JESU BUTCHER AGE: 68 SEX: M : 1955 ARRIVES VIA: Walk-In INFORMANT: [Patient] ED PROVIDER(S): [Joshua Martinez MD] CHIEF COMPLAINT: Abdominal pain HISTORY OF PRESENT ILLNESS: The patient is a 68-year-old male who states that he had 3 days of lower abdominal pain. No nausea or vomiting. He did notice some diarrhea. No urinary complaints. No fever. Patient feels the pain in his low abdomen and sometimes his rectum. The patient went to his doctor's office today, he had outpatient labs done and an outpatient CT scan. His white blood cell count was elevated at 16, his CT scan showed diverticulitis with a small abscess. The abscess was thought too small for IR drainage. The patient was referred to the ER. PMHx/PSHx/Social Hx: See Below PHYSICAL EXAM: GENERAL: Patient is in no acute distress. HEENT: No acute trauma, normocephalic atraumatic, mucous membranes moist, no nasal congestion. NECK: No stridor, no adenopathy, no meningismus, trachea is midline. LUNGS: Clear to auscultation bilaterally, no wheeze, no rhonchi, breath sounds equal. HEART: Without murmurs gallops or rubs, regular rate and rhythm. ABDOMEN: Soft, tender in the lower abdomen bilaterally especially in the mid low abdomen. No distention EXTREMITIES: No cyanosis, full range of motion of all the joints without pain or difficulty. NEUROLOGIC: Oriented x 3, no acute motor or sensory deficits, no focal weakness. SKIN: No jaundice, no diaphoresis. DIFFERENTIAL DIAGNOSIS: Diverticulitis, abscess, bowel obstruction, UTI, appendicitis, musculoskeletal pain, among others EMERGENCY DEPARTMENT PROCEDURES: MEDICAL DECISION MAKING: Laboratory work from earlier today was reviewed. There was a leukocytosis at 16,000, consistent with infection. There was a normal hemoglobin and platelet count. There is no renal failure or significant electrolyte abnormality. No concerning liver enzyme elevation. Here in the ED, urinalysis was performed. There were no findings of infection. The patient's outpatient CT from earlier today shows diverticulitis with a small abscess. On my exam, the patient was tender in the lower abdomen. He was not febrile or toxic. Patient received 1 L of IV saline, he was given IV Zosyn. He did not want anything for pain. I did speak with the patient about his findings, I spoke with case management, the on-call hospitalist was consulted. Admission is indicated. Prior/Outside records/notes reviewed: Today's CT imaging and lab work performed outpatient. Imaging/x-ray results per my interpretation: Chronic Medical/Social conditions affecting care: Care/Management discussed with: Case management and the on-call hospitalist. Level of care consideration(s): After review of the information above and other included data: --I believe the patient requires escalation of care to admission DISPOSITION: Admission Past Med/Surg History Medical History Acute diverticulitis Social History Smoking Status: Never smoker Hx Alcohol Use: Yes Alcohol type: hard liquor Hx Substance Use: No Preferred Language: [place] Citizen Communication Ability: Effective Wheat Washer Required: No Beliefs That Will Affect Care: None Current Living Situation: Spouse Feels Safe at Home: Yes Assistive Devices: Glasses Allergies Allergies Allergy/AdvReac Type Severity Reaction Status Date / Time No Known Allergies Allergy Unknown Verified 07/18/23 18:24 Home Meds Home Medications Medication Instructions Recorded Confirmed ascorbic acid (vitamin C) 500 mg 0 mg PO DAILY 07/18/23 07/18/23 tablet (Vitamin C) cholecalciferol (vitamin D3) 25 0 mcg PO DAILY 07/18/23 07/18/23 mcg (1,000 unit) capsule (Vitamin D3) pregabalin 50 mg capsule 50 mg PO BID 07/18/23 07/18/23 vitamin B complex 1 cap PO DAILY 07/18/23 07/18/23 Results & Data (ED) Vital Signs Vital Signs - 24 hr 07/18/23 17:06 07/18/23 19:02 07/18/23 19:09 Temperature 37.1 C Temperature Source Oral Pulse Rate 74 64 Pulse Rate [Apical] 65 Pulse Rhythm Regular Pulse Strength Normal Pulse Strength [Apical] Normal Respiratory Rate 18 18 Respiratory Effort / Characteristics Non-Labored Non-Labored Spontaneous Respiratory Depth Normal Normal Respiratory Pattern Regular Regular Blood Pressure 142/77 H Blood Pressure [Right Arm] 138/77 Blood Pressure Mean 98 Blood Pressure Mean [Right Arm] 97 Pulse Oximetry 98 98 Oxygen Delivery Method Room Air Room Air Sepsis Recent Fever Within 48 Hours No Sepsis New/Unexplained Change in Mental Status N/A Sepsis Action Taken by Nursing No Action Required Home Medications Current Medication List: was personally reviewed by me Laboratory Data Attestation: I reviewed the patient's lab results. Administered Medications Acetaminophen (Acetaminophen 325 Mg Tab) 650 mg PO Q4H PRN PRN Reason: Pain or Fever Stop: 08/17/23 19:18 Last Admin: 07/18/23 23:04 Dose: 650 mg Documented By: CROW Heparin Sodium (Porcine) (Heparin Sod 5,000 Unit/0.5 Ml Vial) 5,000 units SQ Q8 [place] Stop: 08/17/23 21:59 Last Admin: 07/18/23 23:03 Dose: 5,000 units Documented By: CROW Piperacillin Sod/Tazobactam (Sod 4.5 gm/ Dextrose) 100 mls @ 25 mls/hr IV Q8H [place]; Protocol Stop: 07/28/23 21:59 Last Admin: 07/18/23 23:00 Dose: 25 mls/hr Documented By: CROW Lactated Ringer's (Lr) 1,000 mls @ 100 mls/hr IV .Q10H [place] Stop: 08/17/23 19:44 Last Admin: 07/18/23 20:47 Dose: 100 mls/hr Documented By: SANTI Discontinued Medications Piperacillin Sod/Tazobactam Sod (Zosyn) 4.5 gm in 120 mls @ 240 mls/hr IV NOW ONE Stop: 07/18/23 17:30 Last Infusion: 07/18/23 18:44 Dose: Infused Documented By: Admin: 07/18/23 17:28 Dose: 240 mls/hr Documented By: CHRIS Sodium Chloride (Nss) 1,000 mls @ 999 mls/hr IV .Q1H1M ONE Stop: 07/18/23 18:01 Last Infusion: 07/18/23 19:11 Dose: Infused Documented By: Admin: 07/18/23 17:28 Dose: 999 mls/hr Documented By: CHRIS Discharge Plan Visit Data Chief Complaint: Abnormal Labs/Diagnostic Testing Stated Complaint: IV ANTIBIOTIC, ABN LABS, ABSESS/DIVERTICULITIS ED Provider: Joshua Martinez Discharge Problem: Lower abdominal pain, Diverticulitis, Abscess Patient Disposition: Admitted As Inpatient Condition: Fair Discharge Instructions Interventions: ED Discharge Assessment Last Done: 07/18/23 21:11
[2023-07-18] MEDS ORDERED: ONDANSETRON INJ 2 MG/ML 2 ML VIAL IV PRN (19:19)
[2023-07-18 19:24] LABS: Appearance Urine Clear (Clear); Bacteria Urine Automated None Seen (None Seen); Bilirubin Urine Negative (Negative); Blood Urine Negative (Negative); Cast Urine Automated 0-2 /lpf (0-2); Color Urine Yellow; Epithelial Cell Urine Auto 0-2 /hpf (0-2); Glucose Urine UA Negative (Negative); Ketones Urine 1+ (Negative); Leukocyte Esterase Urine Negative (Negative); Nitrite Urine Negative (Negative); Protein Urine 1+ (Negative); RBC Urine Automated 0-2 /hpf (0-2); Specific Gravity Urine > 1.045 (1.000-1.030); Urobilinogen Urine Negative (Negative); WBC Urine Automated 0-5 /hpf (0-5)
--- NOTE | 2023-07-18 19:53 | History & Physical Report ---
Date of Service July 18, 2023 Assessment & Plan (1) Acute diverticulitis: Plan: Assessment: 1. Acute sigmoid colon diverticulitis with microperforation and forming abscess 3.3 x 1.9 cm. NPO. IV fluids. IV Zosyn. General surgery consultation with Dr. Vicente Saleh to whom I personally spoke. 2. Leukocytosis secondary to acute infectious process as discussed above repeat CBC in the morning. 3. History of neuropathy. 4. History of daily alcohol use but only 1-2 drinks daily. He states never more than 2 drinks. He has never had an issue with alcohol withdrawal. 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 The patient has 0 clinical stigmata of alcohol withdrawal. I will not order alcohol withdrawal protocol at this time however if he should decompensate this could be considered. Plan: As discussed above. Please refer to orders for further planning. History of Present Illness Chief Complaint: Abdominal pain, acute diverticulitis, with microperforation and abscess. Primary Care Provider: Omaira Bartlett Very pleasant 68-year-old male who has had 3 or 4 days worth of abdominal pain. He was evaluated as an outpatient today with outpatient labs revealing leukocytosis with a white blood cell count of 16.24. Outpatient CAT scan revealed a acute diverticulitis with microperforation and abscess formation measuring 3.3 x 1.9 cm. Radiology comments that this is not amenable to interventional radiology/percutaneous drainage. The patient was directed to the emergency department by his outpatient provider. In the ER the patient received IV Zosyn and oral Tylenol. We are called admit the patient for further evaluation and treatment we did recommend stat blood cultures and n.p.o. status. We have talked with Dr. Vicente Saleh general surgery on-call who will see the patient on consultation. Allergies Allergy/AdvReac Type Severity Reaction Status Date / Time No Known Allergies Allergy Unknown Verified 07/18/23 18:24 Home Medications Medication Instructions Recorded Confirmed Type ascorbic acid (vitamin C) 500 mg 0 mg PO DAILY 07/18/23 07/18/23 History tablet (Vitamin C) cholecalciferol (vitamin D3) 25 0 mcg PO DAILY 07/18/23 07/18/23 History mcg (1,000 unit) capsule (Vitamin D3) pregabalin 50 mg capsule 50 mg PO BID 07/18/23 07/18/23 History vitamin B complex 1 cap PO DAILY 07/18/23 07/18/23 History Past Med/Surg History Social History (Updated 07/18/23 @ 19:48 by Arsen Viveros, PhD, DO) Smoking Status: Never smoker Hx Alcohol Use: Yes (Patient only drinks 1-2 drinks per day at most.) Alcohol type: wine and hard liquor Hx Substance Use: No Preferred Language: [place]ian Card Placer Required: No Beliefs That Will Affect Care: None Current Living Situation: Spouse Feels Safe at Home: Yes Assistive Devices: None Review of Systems Review of Systems: A 10 point review of system was obtained and unless otherwise stated here or in history of present illness are negative and noncontributory to chief complaint. Physical Exam Physical Exam: In General: In general is a very pleasant 68-year-old male who is alert and oriented x 3 at the time my examination. He interacts appropriately pleasantly. He does report that his brother had at send significant diverticulosis requiring sigmoid colon resection. This is his first episode personally of diverticulitis. He is in no acute distress and interacts appropriately and pleasantly HEENT: Normocephalic atraumatic pupils are equal round and reactive to light bilaterally. No scleral icterus no conjunctival injection external auditory canals are patent septum is in the midline nose is without discharge oral mucosa is pink and moist without lesion. NECK: Supple no rigidity no lymphadenopathy no thyromegaly no carotid bruits no JVD no masses. HEART: Regular rate and rhythm I do not appreciate any ectopy or rub. No murmur. LUNGS: Clear to auscultation bilaterally and anteriorly with no evidence of adventitious sounds/wheezes rales or rhonchi. ABDOMEN: Soft, mild tenderness to palpation diffusely with no rebound or peritoneal sign maximal point of tenderness is in the left lower quadrant. This is consistent with his CAT scan findings. EXTREMITIES: Intact, no peripheral cyanosis, clubbing or edema. Strength is 5 out of 5 in extremities x4, no pathological reflexes. NEUROLOGICAL: Cranial nerves II through XII are grossly intact with no focal deficit elicited upon examination. No tremor. Results & Data Results & Data Vital Signs (Past 12 Hours) Vital Signs Temp Pulse Pulse Resp BP BP Pulse Ox 07/18/23 19:09 64 07/18/23 19:02 65 18 138/77 98 07/18/23 17:06 37.1 C 74 18 142/77 H 98 O2 Del Method 07/18/23 19:09 07/18/23 19:02 Room Air 07/18/23 17:06 Room Air Code Status & VTE Plan Code Status Full code. I personally discussed with patient. VTE Prophylaxis Plan VTE Prophylaxis will be ordered: Yes PG Care Time/CCT Total # of Minutes Spent Total Time Spent with Patient: Total time spent is greater than 50% in coordination of care (as documented) at patient's floor/unit and/or counseling patient: Coding Level of Care Code 56130 INT INP/OBS CARE 75MIN Diagnoses Acute diverticulitis K57.92
--- NOTE | 2023-07-18 20:38 | Surgery Consultation ---
Date of Consultation July 18, 2023 Assessment & Plan (1) Acute diverticulitis: six 8-year-old gentleman with acute diverticulitis with small abscess not amenable to percutaneous drainage. He has no surgical indications at this time. Would recommend IV hydration, IV antibiotics, clear liquid diet for now. We will continue to observe while he is in the hospital. History of Present Illness Reason for Consultation: Diverticulitis with abscess Requesting Physician: Arsen Viveros DO Attending Physician: Arsen Valladares DO History of Present Illness 68-year-old gentleman presents with a 3-day history of worsening lower abdominal pain radiating into his rectum. He states the pain is sharp and worsening. He denies nausea or vomiting. He has been eating but does not have much of an appetite. He has been having normal bowel movements. His last bowel movement was this morning and was slightly on the side of diarrhea. He denies fevers or chills. He has never been diagnosed with diverticulitis. He had a colonoscopy approximately [address] scan demonstrates what appears to be diverticulitis with a abscess. This abscess is apparently not amenable to percutaneous drainage. Allergies Allergy/AdvReac Type Severity Reaction Status Date / Time No Known Allergies Allergy Unknown Verified 07/18/23 18:24 Home Medications Medication Instructions Recorded Confirmed Type ascorbic acid (vitamin C) 500 mg 0 mg PO DAILY 07/18/23 07/18/23 History tablet (Vitamin C) cholecalciferol (vitamin D3) 25 0 mcg PO DAILY 07/18/23 07/18/23 History mcg (1,000 unit) capsule (Vitamin D3) pregabalin 50 mg capsule 50 mg PO BID 07/18/23 07/18/23 History vitamin B complex 1 cap PO DAILY 07/18/23 07/18/23 History Patient History Social History Smoking Status: Never smoker Hx Alcohol Use: Yes (Patient only drinks 1-2 drinks per day at most.) Alcohol type: wine and hard liquor Hx Substance Use: No Preferred Language: 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 Beliefs That Will Affect Care: None Current Living Situation: Spouse Feels Safe at Home: Yes Assistive Devices: None Review of Systems Review of Systems: All systems reviewed & are unremarkable except as noted in HPI & below Physical Exam Constitutional: WD/WN, vitals as above Eyes: PERRL, conjunctivae normal, anicteric sclerae Neck: trachea midline, no thyromegaly Respiratory: normal respiratory effort; no respiratory distress and no labored breathing Cardiovascular: Rate/Rhythm: regular rate and regular rhythm Gastrointestinal (Abdomen): Inspection/Auscultation: abdomen normal to insp ection Percussion/Palpation: + abdomen tender ( Lower abdomen, moderate tenderness) and abdomen soft; no guarding and abdomen not rigid Skin: no rashes, warm and dry Psychiatric: A+Ox3, euthymic affect Results & Data Vital Signs (Past 12 Hours) Vital Signs Temp Pulse Pulse Resp BP BP Pulse Ox 07/18/23 19:09 64 07/18/23 19:02 65 18 138/77 98 07/18/23 17:06 37.1 C 74 18 142/77 H 98 O2 Del Method 07/18/23 19:09 07/18/23 19:02 Room Air 07/18/23 17:06 Room Air Laboratory Results 07/18/23 Range/Units Unknown Urine Color Yellow Urine Appearance Clear (Clear) Urine pH 5.0 (4.5-7.5) Ur Specific Truman > 1.045 H (1.000-1.030) Urine Protein 1+ H (Negative) Urine Glucose (UA) Negative (Negative) Urine Ketones 1+ H (Negative) Urine Blood Negative (Negative) Urine Nitrite Negative (Negative) Urine Bilirubin Negative (Negative) Urine Urobilinogen Negative (Negative) Ur Leukocyte Esterase Negative (Negative) Urine WBC (Auto) 0-5 (0-5) /hpf Urine RBC (Auto) 0-2 (0-2) /hpf U Hyaline Cast (Auto) 0-2 (0-2) /lpf U Epithel Cells (Auto) 0-2 (0-2) /hpf Urine Bacteria (Auto) None Seen (None Seen) Diagnostic Findings ABDOMEN AND PELVIS CT WITH IV CONTRAST CT DOSE: 410.72 mGy.cm HISTORY: Lower abdominal pain. TECHNIQUE: Multiaxial CT images of the abdomen and pelvis were performed following the use of intravenous contrast. A dose lowering technique was utili zed adhering to the principles of ALARA. COMPARISON STUDY: Abdomen and pelvis CT 04/22/2012. FINDINGS: The lung bases are clear. No acute fractures. Dextroscoliosis within the lumbar spine. Small focus of gas posterior to the L3 vertebral body is likely due to chronic degenerative change. There is an old, healed left anterior seventh rib fracture. The liver, gallbladder, pancreas, spleen, adrenal glands, and kidneys are unremarkable. No hydronephrosis. The main portal vein is patent. Normal caliber abdominal aorta. No retroperitoneal or pelvic lymphadenopathy. The bladder is distended. There is diffuse thickening of the bladder wall. The prostate gland is enlarged. There is focal thickening within the distal sigmoid colon with pericolonic fat stranding consistent with an acute diverticulitis. There are few small foci of extraluminal gas adjacent to the thickened sigmoid colon consistent with microperforation. There is also a 3.3 x 1.9 cm peripheral enhancing fluid collection adjacent to the distal sigmoid colon on image 239 consistent with a small abscess. There are a few thickened loops of small bowel adjacent to the thickened:. These are likely reactive to the acute diverticuliti s. Normal appendix. No dilated loops of bowel to suggest an obstruction. IMPRESSION: 1. Acute diverticulitis of the distal sigmoid colon demonstrating both microperforation and a 3.3 x 1.9 cm pericolonic abscess. This is not amenable to percutaneous drainage due to its small size. 2. Thickened loops of small bowel adjacent to the acute diverticulitis. These are likely reactive. 3. Normal appendix. 4. Distended and thick-walled bladder likely due to chronic outlet obstruction from the enlarged prostate gland. Recommend correlation with urinalysis to exclude a cystitis. 5. Additional findings as described above. ACT 112: Negative or not required by law.
[2023-07-18] MEDS: LACTATED RINGER'S 1,000 ML IV SCH (20:47)
[2023-07-18] MEDS: PIPERACILLIN/TAZOBACTAM 4.5 GM in DEXTROSE 5% MINI-B 100 ML IV SCH (23:00)
[2023-07-18] MEDS: HEPARIN SOD 5,000 UNIT/0.5 ML VIAL SQ SCH (23:03)
[2023-07-18] MEDS: ACETAMINOPHEN 325 MG TAB PO PRN (23:04)
[2023-07-19 06:03] LABS: Basophils # (auto) 0.02 K/uL (0.00-0.20); Basophils % (auto) 0.2 %; Eosinophils # (auto) 0.07 K/uL (0.00-0.50); Eosinophils % (auto) 0.7 %; Hematocrit (blood only) 37.8 % (42.0-52.0); Hemoglobin 12.8 g/dl (14.0-18.0); Immature Granulocytes # (auto) 0.05 K/uL (0.01-0.20); Immature Granulocytes % (auto) 0.5 %; Lymphocytes # (auto) 0.91 K/uL (1.20-3.40); Lymphocytes % (auto) 8.6 %; Mean Corpuscular Hemoglobin 30.3 pg (25.0-34.0); Mean Corpuscular Hgb Conc 33.9 g/dL (32.0-36.0); Mean Corpuscular Volume 89.4 fL (80.0-100.0); Mean Platelet Volume 10.1 fL (9.4-12.4); Monocytes % (auto) 6.6 %; Neutrophils # (auto) 8.83 K/uL (1.40-6.50); Neutrophils % (auto) 83.4 %; Platelet Count 228 K/uL (130-400); RDW Coefficient of Variation 13.2 % (11.5-14.5); RDW Standard Deviation 43.1 fL (36.4-46.3); Red Blood Count 4.23 M/uL (4.70-6.10); White Blood Count 10.58 K/ul (4.8-10.8)
[2023-07-19 06:27] LABS: Albumin Globulin Ratio 1.2 (0.9-2); Albumin Level 3.2 gm/dl (3.4-5.0); BUN Creatinine Ratio 18.8 (10-20); Bilirubin,Total 0.7 mg/dl (0.2-1.0); Creatinine Clr Calc Pharmacy 72.5 ml/min; Est GFR (African American) 104.5 ml/min; Est GFR (Non-African American) 90.2 ml/min; Globulin 2.6 gm/dl (2.5-4.0); Potassium 3.5 mmol/L (3.5-5.1); Total Protein 5.8 gm/dl (6.0-8.3)
[2023-07-19] MEDS: HEPARIN SOD 5,000 UNIT/0.5 ML VIAL SQ SCH (10:11)
--- NOTE | 2023-07-19 10:22 | Surgery Progress Note ---
Date of Service July 19, 2023 Assessment & Plan (1) Diverticulitis: Plan: clears WBC nL con't Iv abx Admission and Anticipated Discharge Date Admission Date: July 18, 2023 Subjective pain almost resolved Review of Systems Constitutional: no fever, no chills and no anorexia Respiratory: no cough and no dyspnea Cardiovascular: no chest pain Gastrointestinal: + abdominal pain; no nausea, no vomiting and no change in bowel habits Genitourinary: no dysuria Neurologic: no localized weakness and no generalized weakness Psychiatric: no behavioral changes Hematologic / Lymphatic: no easy bleeding and no easy bruising Physical Exam Constitutional: WD/WN, vitals as above Respiratory: normal respiratory effort, lungs clear to auscultation Cardiovascular: RRR, no murmur, no edema Gastrointestinal (Abdomen): Inspection/Auscultation: abdomen normal to inspect ion and normal bowel sounds; abdomen not distended Percussion/Palpation: abdomen soft; abdomen nontender, no guarding and abdomen not rigid Musculoskeletal: Head/Neck/Chest: normocephalic and head atraumatic Skin: no rashes, warm and dry Results & Data Vital Signs (Past 12 Hours) Vital Signs Temp Pulse Pulse Resp BP Pulse Ox O2 Del Method 07/19/23 07:23 36.9 C 60 16 133/73 99 Room Air 07/19/23 05:58 58 L 07/19/23 04:11 37.0 C 101 H 20 112/53 L 94 Room Air 07/18/23 23:22 66
[2023-07-19] MEDS: PANTOprazole 40 MG in SYRINGE 0 ML IV SCH (11:39)
--- NOTE | 2023-07-19 12:14 | Hospitalist Progress Note ---
Date of Service July 19, 2023 Assessment & Plan (1) Acute diverticulitis: Plan: With perforation and small abscess in the sigmoid region. He is now on clear liquids. IV fluids have been tapered down. Continue Zosyn, day 2. Appreciate general surgery consultation and recommendations. Watchful waiting at this time. Plan Hopeful discharge to home soon on oral antibiotic Admission and Anticipated Discharge Date Admission Date: July 18, 2023 Subjective He states he is feeling better overall. The abdominal pain has improved considerably. Surgery consultation and recommendations appreciated. He remains on intravenous Zosyn. White blood cell count has trended down from 16,000- 10,000. He is allowed clear liquids at this time. Review of Systems 2 Review of Systems: Constitutional-no fever or chills ENT-no blurred vision, no double vision, no epistaxis, no sore throat Respiratory-no cough, no wheezing, no shortness of breath Cardiac-no palpitations, no chest pain, no syncope GI-no nausea, vomiting, diarrhea, melena, hematochezia -no urinary retention, no urinary incontinence, no dysuria, no hematuria Musculoskeletal-no joint pain, no muscle tenderness Skin-no bruising, no rashes, no pruritus Neuro-no isolated weakness, no paresthesia, no weakness Psych-no depression, no anxiety Physical Exam 2 Physical Exam: General-alert and oriented x3, no fever, no chills HEENT-head atraumatic and normocephalic, pupils equal and reactive to light, extraocular muscles intact Neck-no lymphadenopathy or thyromegaly, trachea midline Chest-clear to auscultation. No rales, wheezing or rhonchi Cardiac-regular rate and rhythm, normal S1 and S2 Abdomen-normal bowel sounds, no hepatosplenomegaly. Mildly tender in the left lower quadrant area. No rebound or guarding Extremities-no cyanosis, clubbing, or edema Neuro-cranial nerves II through XII intact, motor and sensory function within normal limits, strength symmetrical, no focal deficits Psych-normal affect, normal mood Results & Data Results & Data Vital Signs (Past 12 Hours) Vital Signs Temp Pulse Pulse Resp BP Pulse Ox O2 Del Method 07/19/23 11:16 36.8 C 55 L 18 142/60 H 98 Room Air 07/19/23 07:23 36.9 C 60 16 133/73 99 Room Air 07/19/23 05:58 58 L 07/19/23 04:11 37.0 C 101 H 20 112/53 L 94 Room Air Laboratory Results 07/19/23 05:43 07/19/23 05:43 PG Care Time/CCT Total # of Minutes Spent Total Time Spent with Patient: Total time spent is greater than 50% in coordination of care (as documented) at patient's floor/unit and/or counseling patient: Coding Level of Care Code 84625 SUB INP/OBS CARE 3/50MIN Diagnoses Acute diverticulitis K57.92
[2023-07-19] MEDS ORDERED: Nursing to Pharmacy Communication SCH (19:15)
[2023-07-20] MEDS ORDERED: Nursing to Pharmacy Communication SCH (03:45)
[2023-07-20 06:17] LABS: Basophils # (auto) 0.01 K/uL (0.00-0.20); Basophils % (auto) 0.1 %; Eosinophils # (auto) 0.07 K/uL (0.00-0.50); Hematocrit (blood only) 37.8 % (42.0-52.0); Hemoglobin 12.9 g/dl (14.0-18.0); Immature Granulocytes # (auto) 0.03 K/uL (0.01-0.20); Immature Granulocytes % (auto) 0.4 %; Lymphocytes # (auto) 0.91 K/uL (1.20-3.40); Lymphocytes % (auto) 12.6 %; Mean Corpuscular Hemoglobin 30.4 pg (25.0-34.0); Mean Corpuscular Hgb Conc 34.1 g/dL (32.0-36.0); Mean Corpuscular Volume 88.9 fL (80.0-100.0); Monocytes % (auto) 8.3 %; Neutrophils # (auto) 5.62 K/uL (1.40-6.50); Neutrophils % (auto) 77.6 %; Platelet Count 261 K/uL (130-400); RDW Coefficient of Variation 12.9 % (11.5-14.5); RDW Standard Deviation 42.5 fL (36.4-46.3); Red Blood Count 4.25 M/uL (4.70-6.10); White Blood Count 7.24 K/ul (4.8-10.8)
[2023-07-20 06:22] LABS: Calcium 8.1 mg/dl (8.6-10.3); Creatinine Clr Calc Pharmacy 68.4 ml/min; Est GFR (African American) 100.7 ml/min; Est GFR (Non-African American) 86.9 ml/min; Potassium 3.4 mmol/L (3.5-5.1)
--- NOTE | 2023-07-20 08:24 | Surgery Progress Note ---
Date of Service July 20, 2023 Assessment & Plan (1) Acute diverticulitis: Plan: con't IV abx stay on clears for today slow progress Admission and Anticipated Discharge Date Admission Date: July 18, 2023 Subjective pain a little improved did OK on clears Review of Systems Constitutional: no fever and no chills Eyes: no problem reported Respiratory: no cough and no dyspnea Cardiovascular: no chest pain Gastrointestinal: + abdominal pain; no nausea, no vomiting and no change in bowel habits Genitourinary: no dysuria Neurologic: no localized weakness and no generalized weakness Psychiatric: no behavioral changes Physical Exam Constitutional: WD/WN, vitals as above Eyes: PERRL, conjunctivae normal, anicteric sclerae Respiratory: normal respiratory effort Cardiovascular: RRR, no murmur, no edema Gastrointestinal (Abdomen): Inspection/Auscultation: abdomen normal to inspection and normal bowel sounds; abdomen not distended Percussion/Palpation: + abdomen tender and abdomen soft; no guarding and abdomen not rigid Musculoskeletal: Head/Neck/Chest: normocephalic and head atraumatic Skin: no rashes, warm and dry Results & Data Vital Signs (Past 12 Hours) Vital Signs Temp Pulse Pulse Resp BP Pulse Ox O2 Del Method 07/20/23 07:51 36.7 C 78 16 129/83 97 Room Air 07/20/23 07:14 Room Air 07/20/23 04:30 36.7 C 56 L 20 132/74 97 Room Air 07/19/23 23:37 36.7 C 61 20 153/84 H 98 Room Air 07/19/23 21:55 63
[2023-07-20] MEDS: PREGABALIN 50 MG CAP PO SCH (08:34)
[2023-07-20] MEDS: D5NSS + 20MEQ KCL 20 MEQ/1,000 ML BAG IV SCH (09:26)
--- NOTE | 2023-07-20 12:20 | Hospitalist Progress Note ---
Date of Service July 20, 2023 Assessment & Plan (1) Acute diverticulitis: Plan: With perforation and small abscess in the sigmoid region. He is now on clear liquids. IV fluids have been tapered down. Continue Zosyn, day 2. Appreciate general surgery consultation and recommendations. Watchful waiting at this time. (2) Hypokalemia: Plan: Parenteral replacement. Serial labs. Plan Hopeful discharge to home soon on oral antibiotic Admission and Anticipated Discharge Date Admission Date: July 18, 2023 Subjective Alert and oriented. White blood cell count is trending down. No new symptoms. Surgery entry noted. He remains on intravenous Zosyn, day 3. He also remains on clear liquid diet and IV fluids. Potassium has been added to the IV fluids for mild hypokalemia. Hopefully he can go home soon on an oral antibiotic Review of Systems 2 Review of Systems: Constitutional-no fever or chills ENT-no blurred vision, no double vision, no epistaxis, no sore throat Respiratory-no cough, no wheezing, no shortness of breath Cardiac-no palpitations, no chest pain, no syncope GI-no nausea, vomiting, diarrhea, melena, hematochezia -no urinary retention, no urinary incontinence, no dysuria, no hematuria Musculoskeletal-no joint pain, no muscle tenderness Skin-no bruising, no rashes, no pruritus Neuro-no isolated weakness, no paresthesia, no weakness Psych-no depression, no anxiety Physical Exam 2 Physical Exam: General-alert and oriented x3, no fever, no chills HEENT-head atraumatic and normocephalic, pupils equal and reactive to light, extraocular muscles intact Neck-no lymphadenopathy or thyromegaly, trachea midline Chest-clear to auscultation. No rales, wheezing or rhonchi Cardiac-regular rate and rhythm, normal S1 and S2 Abdomen-normal bowel sounds, no hepatosplenomegaly. Mildly tender in the left lower quadrant area. No rebound or guarding Extremities-no cyanosis, clubbing, or edema Neuro-cranial nerves II through XII intact, motor and sensory function within normal limits, strength symmetrical, no focal deficits Psych-normal affect, normal mood Results & Data Results & Data Vital Signs (Past 12 Hours) Vital Signs Temp Pulse Pulse Resp BP Pulse Ox O2 Del Method 07/20/23 11:19 36.6 C 57 L 16 151/88 H 100 Room Air 07/20/23 07:51 36.7 C 78 16 129/83 97 Room Air 07/20/23 07:14 Room Air 07/20/23 07:00 53 L 07/20/23 04:30 36.7 C 56 L 20 132/74 97 Room Air Laboratory Results 07/20/23 05:35 07/20/23 05:35 PG Care Time/CCT Total # of Minutes Spent Total Time Spent with Patient: Total time spent is greater than 50% in coordination of care (as documented) at patient's floor/unit and/or counseling patient: Coding Level of Care Code 01296 SUB INP/OBS CARE 3/50MIN Diagnoses Acute diverticulitis K57.92 Hypokalemia E87.6
[2023-07-21 07:04] LABS: Basophils # (auto) 0.02 K/uL (0.00-0.20); Basophils % (auto) 0.3 %; Eosinophils # (auto) 0.07 K/uL (0.00-0.50); Hematocrit (blood only) 37.1 % (42.0-52.0); Hemoglobin 12.8 g/dl (14.0-18.0); Immature Granulocytes # (auto) 0.02 K/uL (0.01-0.20); Immature Granulocytes % (auto) 0.3 %; Lymphocytes # (auto) 0.84 K/uL (1.20-3.40); Lymphocytes % (auto) 12.1 %; Mean Corpuscular Hemoglobin 30.6 pg (25.0-34.0); Mean Corpuscular Hgb Conc 34.5 g/dL (32.0-36.0); Mean Corpuscular Volume 88.8 fL (80.0-100.0); Mean Platelet Volume 9.8 fL (9.4-12.4); Monocytes # (auto) 0.73 K/uL (0.11-0.59); Monocytes % (auto) 10.5 %; Neutrophils # (auto) 5.29 K/uL (1.40-6.50); Neutrophils % (auto) 75.8 %; Platelet Count 263 K/uL (130-400); RDW Coefficient of Variation 12.8 % (11.5-14.5); RDW Standard Deviation 41.8 fL (36.4-46.3); Red Blood Count 4.18 M/uL (4.70-6.10); White Blood Count 6.97 K/ul (4.8-10.8)
[2023-07-21 07:28] LABS: BUN Creatinine Ratio 9.9 (10-20); Creatinine Clr Calc Pharmacy 78.7 ml/min; Est GFR (African American) 106.6 ml/min; Potassium 3.6 mmol/L (3.5-5.1)
--- NOTE | 2023-07-21 09:57 | Surgery Progress Note ---
Date of Service July 21, 2023 Assessment & Plan (1) Diverticulitis: Plan: discharge on po abx x 10 days yatking po well abd benign Admission and Anticipated Discharge Date Admission Date: July 18, 2023 Subjective no pain except some discomfort with urination taking po well afebrile Review of Systems Constitutional: no fever and no chills Respiratory: no dyspnea Cardiovascular: no chest pain Gastrointestinal: no abdominal pain, no nausea, no vomiting and no change in bowel habits Genitourinary: no dysuria Neurologic: no localized weakness and no generalized weakness Psychiatric: no behavioral changes Hematologic / Lymphatic: no easy bleeding and no easy bruising Physical Exam Constitutional: WD/WN, vitals as above Eyes: PERRL, conjunctivae normal, anicteric sclerae Respiratory: normal respiratory effort, lungs clear to auscultation Cardiovascular: RRR, no murmur, no edema Gastrointestinal (Abdomen): Inspection/Auscultation: abdomen normal to inspection and normal bowel sounds; abdomen not distended Percussion/Palpation: abdomen soft; abdomen nontender, no guarding and abdomen not rigid Musculoskeletal: Head/Neck/Chest: normocephalic and head atraumatic Skin: no rashes, warm and dry Results & Data Vital Signs (Past 12 Hours) Vital Signs Temp Pulse Resp BP Pulse Ox O2 Del Method 07/21/23 07:56 36.7 C 67 16 147/83 H 92 Room Air 07/21/23 05:25 36.7 C 56 L 20 136/73 98 Room Air 07/20/23 23:50 36.6 C 81 20 165/79 H 100 Room Air
--- NOTE | 2023-07-21 10:51 | Discharge Summary ---
Date of Service July 21, 2023 Admission HPI Per Admitting Provider Very pleasant 68-year-old male who has had 3 or 4 days worth of abdominal pain. He was evaluated as an outpatient today with outpatient labs revealing leukocytosis with a white blood cell count of 16.24. Outpatient CAT scan revealed a acute diverticulitis with microperforation and abscess formation measuring 3.3 x 1.9 cm. Radiology comments that this is not amenable to interventional radiology/percutaneous drainage. The patient was directed to the emergency department by his outpatient provider. In the ER the patient received IV Zosyn and oral Tylenol. We are called admit the patient for further evaluation and treatment we did recommend stat blood cultures and n.p.o. status. We have talked with Dr. Vicente Saleh general surgery on-call who will see the patient on consultation. Principal Diagnosis Sigmoid diverticulitis with microperforation and localized abscess, hypokalemia Discharge Exam General-alert and oriented x3, no fever, no chills HEENT-head atraumatic and normocephalic, pupils equal and reactive to light, extraocular muscles intact Neck-no lymphadenopathy or thyromegaly, trachea midline Chest-clear to auscultation. No rales, wheezing or rhonchi Cardiac-regular rate and rhythm, normal S1 and S2 Abdomen-normal bowel sounds, no hepatosplenomegaly. Mildly tender in the left lower quadrant area. No rebound or guarding Extremities-no cyanosis, clubbing, or edema Neuro-cranial nerves II through XII intact, motor and sensory function within normal limits, strength symmetrical, no focal deficits Psych-normal affect, normal mood Discharge Data Allergies Allergy/AdvReac Type Severity Reaction Status Date / Time No Known Allergies Allergy Unknown Verified 07/18/23 18:24 Consultations 07/18/23 18:12 ED Decision to Admit Stat 07/18/23 19:18 Consult General Surgery Routine Hospital Course (1) Acute diverticulitis: With perforation and small abscess in the sigmoid region. Diet has been advanced. Treated while hospitalized with Zosyn for 3 days. He will go home on Augmentin 875 mg twice daily for 10 more days. Appreciate general surgery consultation and recommendations. (2) Hypokalemia: Corrected with parenteral replacement. Serial labs. Plan Home today, July 20 Total Time Total Time Spent Total Time Spent (In Minutes): 45 minutes Discharge Plan Discharge Items Patient Disposition: Home - Self-Care Reason For Visit: TIC W. PERF AND ABSCESS Discharge Diagnosis: Sigmoid diverticulitis with perforation and localized abscess, hypokalemia Condition on Discharge: Good Activity: Resume your previous activity Non-emergency contact: Primary Care Provider Call non-emergency contact if: your symptoms worsen Follow-up/Referrals: Omaira Bartlett [Primary Care Provider] - Diet: Regular Addtl Attending Provider Instructions: Take Augmentin (amoxicillin/clavulanate) twice daily for 10 more days. See primary care provider soon as possible Pending Studies at Discharge: No Stand-Alone Forms: My [facility], Smoking Cessation Medications and DC Order Prescriptions: New amoxicillin-pot clavulanate 875-125 mg tablet 1 tab PO BID Qty: 20 0RF Continued ascorbic acid (vitamin C) [Vitamin C] 500 mg Tablet 0 mg PO DAILY Rx Instructions: PT UNSURE OF STRENGTH vitamin B complex [B Complex] Capsule 1 cap PO DAILY cholecalciferol (vitamin D3) [Vitamin D3] 25 mcg (1,000 unit) Capsule 0 mcg PO DAILY Rx Instructions: PT UNSURE OF STRENGTH pregabalin 50 mg capsule 50 mg PO BID Discharge Orders: Discharge Order (Routine); Ordered 07/21/23 Ordered By: Rasheed Riojas Admission Data Admit Date/Time: 07/18/23 19:21 Attending Provider: Rasheed Riojas Admit Provider: Arsen Viveros Primary Care Provider: Omaira Bartlett Other Providers: Arsen Viveros; Vicente Saleh Coding Level of Care Code 48922 INP/OBS DISCH >30 MIN Diagnoses Acute diverticulitis K57.92 Hypokalemia E87.6
== END 2023-07-21 12:02 | disposition home or self-care (01) | DRG 392 ==
LOC: ED 16:56 → 2N 19:21 → SUATTDRO 19:21 → 2N 21:11

== ENCOUNTER 2023-11-23 12:29 | Observation (INO) ==
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
[~2023-11-23 12:29] MED LIST: ceFAZolin 2000MG 2,000 MG/15 ML SYR IV SCH
[2023-11-23] MEDS ORDERED: MIDAZOLAM HCL 1 MG/ML 2ML VIAL ONE (12:40)
[2023-11-23] MEDS ORDERED: LIDOCAINE 2% 2 ML VIAL/AMP(20MG/ML) INFIL ONE (12:40)
[2023-11-23] MEDS ORDERED: fentaNYL citrate PF 100 MCG/2 ML VIAL ONE (12:40)
[2023-11-23] MEDS ORDERED: DEXAMETHASONE SOD INJ 4 MG/ML VIAL ONE (12:40)
[2023-11-23] MEDS ORDERED: PROPOFOL IV EMULSION 10 MG/ML 20 ML VIAL IV ONE (12:40)
[2023-11-23] MEDS ORDERED: ONDANSETRON INJ 2 MG/ML 2 ML VIAL ONE (12:40)
[2023-11-23] MEDS ORDERED: oxyCODONE/ACETAMINOPHEN 5mg/325mg TAB PO PRN (12:56)
[2023-11-23] MEDS ORDERED: PHENAZOPYRIDINE HCL 200 MG TAB PO PRN (12:56)
[2023-11-23] MEDS ORDERED: MoRPHine SULFATE 2 MG/ML CARP IV PRN (12:56)
--- NOTE | 2023-11-23 12:56 | History & Physical Bridge Note ---
Date of Service November 23, 2023 History & Physical Bridge Note I have examined the patient, reviewed the History & Physical and in the interval since the performance of the History & Physical I have noted the following changes of clinical significance: no changes noted
[2023-11-23] MEDS: LACTATED RINGER'S 1,000 ML IV SCH (13:07)
[2023-11-23] MEDS ORDERED: ATROPINE SULFATE 0.1 MG/ML 10ML SYR IV PRN (14:02)
[2023-11-23] MEDS ORDERED: fentaNYL citrate PF 100 MCG/2 ML VIAL IV PRN (14:02)
[2023-11-23] MEDS ORDERED: ePHEDrine sulfate 50 MG/ML AMP IV PRN (14:02)
[2023-11-23] MEDS ORDERED: ONDANSETRON INJ 2 MG/ML 2 ML VIAL IV PRN (14:02)
[2023-11-23] MEDS: CIPROFLOXACIN / D5W 400 MG/200 ML BAG IV SCH (14:54)
--- NOTE | 2023-11-23 16:01 | Operative Report ---
PG Post Operative Report Pre & Post Diagnosis Operation Date: 11/23/23 14:00 Pre-Op Diagnosis: Benign Prostatic Hyperplasia with Urinary Obstruction Post-Op Diagnosis: Benign Prostatic Hyperplasia with Urinary Obstruction I identified the patient and participated in the time-out.: Yes Procedure Operation Date: 11/23/23 14:00 Actual Procedures p Transurethral Resection of the Prostate, Urethral Dilation(Not Applicable) - Vicente Medina DO Surgeon Vicente Medina, II, DO Assessment Nurse Practitioner None Estimated Blood Loss 10 Findings Consistent with Post-Op Diagnosis Significant meatal stricture. Very Large Prostate with obstruction. Large bilateral lateral lobes and significant median lobe. Specimens Prostate adenoma. Drains 22Fr [address] Catheter Anesthesia Type General Complications none Disposition Disposition: Recovery Room Indications Patient with obstruction due to prostate enlargement. Risks and benefits discussed at length. Description of Procedure Patient was consented and brought back to the operating room. Patient was placed under anesthesia in the supine position and moved to the dorsal lithotomy position. Patient was prepped and draped in the regular sterile fashion. A time out was completed. A 30degree Cystoscope was placed into the bladder and the entire bladder was examined. The meatus was severely narrowed. A significant stricture was noted at the meatus. This was dilated. Mild bleeding was noted at the meatus after dilation. The scope was advanced to the bladder The UO's were identified as well as the bladder neck, trigone, dome, and the other important landmarks. The prostatic urethra and large lobes/adenoma was assessed and the veru and bladder neck identified and area/size was assessed. The resection scope was placed and the bipolar loop was selected. Starting at the 5 and 7 o'clock positions, a channel was created from bladder neck to the veru. The large median lobe was resected. Starting at the 1 and 11 o'clock positions, the lateral lobes were then resected. This was resected to capsule fibers. Any areas of bleeding were cauterized. A large amount of tissue was resected from the lateral lobes. The Specimen was removed and sent for analysis. The resection bed and any bleeding areas were fulgurated/cauterized and the entire area inspected. All bleeding was controlled. The bladder was inspected a final time. The bladder was emptied and irrigated. All specimen and debris was removed. The scope was removed with the bladder partially full. A catheter was placed and balloon elevated. This was easily irrigated. Continuous irrigation was started. The patient was cleaned, aroused from anesthesia, and transferred to the pacu in stable condition having tolerated the procedure well with no complications. I was present and participated in all aspects of the procedure. The patient will be monitored in the PACU until transferred. Plan to observe over night with CBI. Will maintain catheter for approx 7-10 days. Remove in office. Will need PVR in office with [facility] in approx 2-3 weeks after catheter removal. I attest to the content of the Intraoperative Record and any orders documented therein. Any exceptions are noted below.
--- NOTE | 2023-11-23 16:45 | Anesthesiology Progress Note ---
Date of Service November 23, 2023 Anesthesia Post Procedure Vital Signs Vital Signs: Temp Pulse Pulse Resp BP Pulse Ox O2 Del Method 11/23/23 16:35 46 L 14 142/81 H 98 Room Air 11/23/23 16:25 50 L 12 138/88 97 Room Air 11/23/23 16:15 50 L 12 138/82 97 Room Air 11/23/23 16:05 51 L 12 130/84 95 Oxymask 11/23/23 15:59 36 C L 59 L 14 116/71 95 Oxymask 11/23/23 12:55 36.8 C 58 L 20 134/77 100 Room Air O2 Flow Rate 11/23/23 16:35 11/23/23 16:25 11/23/23 16:15 11/23/23 16:05 4 11/23/23 15:59 6 11/23/23 12:55 Transfer of Care Handoff Completed per policy Notes Mental Status: alert / awake / arousable Patient Amnestic to Procedure: Yes Nausea / Vomiting: adequately controlled Pain: adequately controlled Airway Patency, RR, SpO2: stable & adequate BP & HR: stable & adequate Hydration State: stable & adequate Anesthetic Complications: no major complications apparent
[2023-11-23] MEDS: SODIUM CHLORIDE 0.9% 1,000 ML IV SCH (18:18)
[2023-11-23] MEDS: ceFAZolin 2000MG 2,000 MG/15 ML SYR IV SCH (18:35)
[2023-11-24] MEDS: ACETAMINOPHEN 325 MG TAB PO PRN (00:39)
[2023-11-24 07:55] VITALS: PULSE 50
[2023-11-24] MEDS: TAMSULOSIN HCL 0.4 MG CAP PO SCH (08:59)
[2023-11-24] MEDS: PREGABALIN 50 MG CAP PO SCH (09:47)
[2023-11-24 09:54] LABS: Hemoglobin 13.5 g/dl (14.0-18.0); Mean Corpuscular Hemoglobin 29.3 pg (25.0-34.0); Mean Corpuscular Hgb Conc 32.9 g/dL (32.0-36.0); Mean Corpuscular Volume 89.1 fL (80.0-100.0); Mean Platelet Volume 10.7 fL (9.4-12.4); Platelet Count 258 K/uL (130-400); RDW Coefficient of Variation 13.3 % (11.5-14.5); RDW Standard Deviation 43.3 fL (36.4-46.3); White Blood Count 13.59 K/ul (4.8-10.8)
[2023-11-24 10:10] LABS: BUN Creatinine Ratio 17.4 (10-20); Calcium 8.3 mg/dl (8.6-10.3); Creatinine Clr Calc Pharmacy 65.8 ml/min; Est GFR (African American) 99.4 ml/min; Est GFR (Non-African American) 85.8 ml/min; Potassium 3.4 mmol/L (3.5-5.1)
[2023-11-24 11:39] VITALS: BP 136/78; RESP 14; TEMP 98.4; O2SAT 96
--- NOTE | 2023-11-24 12:31 | Urology Progress Note ---
Date of Service November 24, 2023 Assessment & Plan (1) BPH w urinary obs/LUTS: Plan - POD #1 s/p Transurethral Resection of the Prostate, Urethral Dilation - Doing well, progressing as expected - Afebrile with stable vitals. - Labs reviewed - WBC 13.59, Hemoglobin 13.5, Creatinine 0.92. - 3 way Easley catheter intact, patent and draining light pink urine with CBI on slow. - CBI clamped @0900, nursing aware - will reassess later this AM - Maintain Easley catheter - Encourage ambulation - Continue supportive care - Anticipate home with Easley catheter later today presuming urine appropriate and he continues to progress as expected - Pt reassessed - Urine remains clear to light pink off CBI - He remains afebrile and hemodynamically stable - Pt is stable for discharge home today with Easley catheter. - Expected clinical course reviewed, all questions answered - Will arrange outpatient follow-up with our service for voiding trial Plan reviewed with . Admission and Anticipated Discharge Date Admission Date: November 23, 2023 Subjective Patient seen at bedside this a.m. Awake, resting in bed on arrival No acute distress Urine is light pink with CBI on slow Denies fever, chills, nausea, vomiting Reports minimal pain Tolerating diet Review of Systems Constitutional: as per Subjective / HPI Gastrointestinal: as per Subjective / HPI Genitourinary: + as per Subjective / HPI Physical Exam Constitutional: no acute distress Respiratory: no respiratory distress and no labored breathing Musculoskeletal: Head/Neck/Chest: normocephalic Skin: No visible rashes or lesions to exposed skin areas Neurologic: moves all extremities and awake Psychiatric: A+Ox3, euthymic affect Genitourinary: Easley intact with CBI Results & Data Vital Signs (Past 12 Hours) Vital Signs Temp Pulse Pulse Resp BP BP Pulse Ox 11/24/23 11:37 36.9 C 50 L 14 136/78 96 11/24/23 07:51 36.4 C L 50 L 16 134/76 97 11/24/23 04:00 36.4 C L 46 L 16 130/69 98 O2 Del Method 11/24/23 11:37 Room Air 11/24/23 07:51 Room Air 11/24/23 04:00 Room Air PG Care Time/CCT Total # of Minutes Spent Total Time Spent with Patient: Total time spent is greater than 50% in coordination of care (as documented) at patient's floor/unit and/or counseling patient: Coding Level of Care Code None Diagnoses BPH w urinary obs/LUTS N40.1; N13.8
--- NOTE | 2023-11-25 09:19 | Discharge Summary ---
Date of Service November 25, 2023 Admission HPI Per Admitting Provider 68 year old male with a history of BPH with urinary obstruction who presents for TURP Admission Exam Per Admitting Provider General: Alert in no acute distress. HEENT: Inspection normal Psychologic: Normal affect. Respiratory: Nonlabored. No use of accessory muscles. Skin: [place] and Dry. No rashes or visible lesions. Principal Diagnosis BPH with urinary obstruction Discharge Exam Constitutional no acute distress Respiratory no respiratory distress and no labored breathing Musculoskeletal Head/Neck/Chest: normocephalic Neurologic moves all extremities and awake Psychiatric A+Ox3, euthymic affect Genitourinary Easley intact and draining clear to light pink urine Discharge Data Allergies Allergy/AdvReac Type Severity Reaction Status Date / Time No Known Allergies Allergy Unknown Verified 11/23/23 12:57 Procedures Performed Operation Date: 11/23/23 14:00 Actual Procedures p Transurethral Resection of the Prostate, Urethral Dilation(Not Applicable) - Vicente Medina, DO Hospital Course (1) BPH w urinary obs/LUTS: Plan - POD #1 s/p Transurethral Resection of the Prostate, Urethral Dilation - Doing well, progressing as expected - Afebrile with stable vitals. - Labs reviewed - WBC 13.59, Hemoglobin 13.5, Creatinine 0.92. - 3 way Easley catheter intact, patent and draining light pink urine with CBI on slow. - CBI clamped @0900, nursing aware - will reassess later this AM - Maintain Easley catheter - Encourage ambulation - Continue supportive care - Anticipate home with Easley catheter later today presuming urine appropriate and he continues to progress as expected - Pt reassessed - Urine remains clear to light pink off CBI - He remains afebrile and hemodynamically stable - Pt is stable for discharge home today with Easley catheter. - Expected clinical course reviewed, all questions answered - Will arrange outpatient follow-up with our service for voiding trial Plan reviewed with . Total Time Total Time Spent Total Time Spent (In Minutes): 15 Discharge Plan Discharge Items Patient Disposition: Home - Self-Care Reason For Visit: Benign Prostatic Hyperplasia with Urinary Obstruct Discharge Diagnosis: BPH Activity: Per Instructions section Lifting: No more than 25 pounds Bathing Comment: OK to shower. No tub baths or soaks. Sexual Activity: Wait until after follow-up appointment Exercise/Sports: Wait until after follow-up appointment Non-emergency contact: Surgeon and Urologist Call non-emergency contact if: you have any medication questions, your pain is not controlled, your pain is worsening and you have a fever Follow-up/Referrals: Omaira Bartlett [Primary Care Provider] - Arline Gaspar PA-C [Physician Tinner Helper] - 12/18/23 10:00 am [facility],Nurse [FAKE FOR SCHEDULES] - 11/30/23 8:30 am Diet: Regular Addtl Attending Provider Instructions: Please take all medications as prescribed and keep all follow-ups as scheduled. Please call our office at [phone] with any questions, concerns or need to reschedule appointments for any reason. We are happy to assist you. Please finish your antibiotics (Ciprofloxacin) as previously prescribed. Tips for your recovery at home: Dont be alarmed by brownish or reddish blood or clots in your urine. This is a result of the procedure. This may occur off and on for weeks to months after the procedure but should continue to improve. Drink plenty of fluids during the day (enough to keep your urine very light colored). This will help keep a healthy flow of urine. Do not lift >25 lbs until your followup Avoid constipation. Please use a stool softener (Colace) for the first two weeks after your procedure Be sure to finish the antibiotics as prescribed. If you go home with a catheter, please wash tubing where it enters your body twice daily with mild soap (Dove or Dial). Once your catheter is removed, expect some blood in your urine and some burning when you urinate. You should have an appointment to have this removed, if you do not please call our office to arrange. When to call [facility] at [phone]: Your urine contains heavy blood clots or your catheter is not draining You are constantly leaking urine Fever of 101F or higher, chills, nausea, or vomiting Your pain is not relieved with medication Pending Studies at Discharge: Yes (pathology) Stand-Alone Forms: [employer] Smoking Cessation Medications and DC Order Prescriptions: Continued ciprofloxacin HCl 500 mg tablet 500 mg PO BID 7 Days Qty: 14 0RF ascorbic acid (vitamin C) [Vitamin C] 500 mg Tablet 0 mg PO DAILY Rx Instructions: PT UNSURE OF STRENGTH vitamin B complex Capsule 1 cap PO DAILY cholecalciferol (vitamin D3) [Vitamin D3] 25 mcg (1,000 unit) Capsule 0 mcg PO DAILY Rx Instructions: PT UNSURE OF STRENGTH pregabalin 50 mg capsule 50 mg PO QAM potassium 99 mg Tablet 99 mg PO QAM tamsulosin 0.4 mg capsule 0.4 mg PO QAM Discharge Orders: Discharge Order (Routine); Ordered 11/24/23 Ordered By: Le Flowers/Other Patient Handouts: TURP Home Recovery Admission Data Admit Date/Time: 11/23/23 12:56 Attending Provider: Vicente Medina Admit Provider: Vicente Medina Primary Care Provider: Omaira Bartlett Other Interventions: Discharge Summary Assessment (RN) Last Done: 11/24/23 14:14 Coding Level of Care Code 44126 IN/OBS DISCH 30 MIN/LESS Diagnoses BPH w urinary obs/LUTS N40.1; N13.8
== END 2023-11-24 14:51 | disposition home or self-care (01) ==
LOC: ASU 12:29 → 3W 12:29